=== PATIENT | female | born 1955 | race Caucasian/White ===

== ENCOUNTER 2019-03-09 11:49 | Inpatient (IN) | payer BC ==
[2019-03-09 14:27] LABS: Hematocrit 40.7 % (35-47); Hemoglobin 13.9 gm/dl (12.0-16.0); Mean Corpuscular Hemoglobin 29.7 pg (26-32); Mean Corpuscular Hgb Concent. 34.2 g/dl (32-36); Platelet Count 392 K/mm3 (150-450); Red Blood Count 4.68 M/mm3 (4.1-5.4); Red Cell Distribution Width 13.8 % (11.5-14.0); White Blood Count 9.3 K/mm3 (4.0-10.5)
[2019-03-09] MEDS ORDERED: solu-MEDROL 125 MG IV SCH (14:30)
--- NOTE | 2019-03-09 14:41 | XRAY ---
Indication: Short of breath. Asthma exacerbation. Comparison: October 20, 2018. PA/lateral chest demonstrates stable left base calcified granulomas. No focal infiltrate, consolidation, or large effusion. Heart and mediastinal structures within normal limits. Bony thorax intact again with mild degenerative changes. Impression: Stable nonacute chest with chronic features.
[2019-03-09 14:45] LABS: BAND 7 % (0.0-2.0); Basophil 1 % (0.0-1.0); Lymphocytes 26 % (24-44); Metamyelocyte 3 %; Monocyte 2 % (0.0-12.0); Neutrophils 61 % (36.0-66.0); Platelet Estimate NORMAL (NORMAL); Total Cells Counted 100
[2019-03-09 14:46] LABS: Granulocyte Absolute (ANC) 6.4 (1.4-6.9)
[2019-03-09 14:48] LABS: ALBUMIN 4.2 g/dL (3.5-5.0); ALKALINE PHOSPHATASE 110 U/L (38-126); AMYLASE 81 U/L (30-110); ANION GAP 13.9 MEQ/L (5-15); BLOOD UREA NITROGEN 18 mg/dL (7-17); CHLORIDE 107 mmol/L (98-107); Calcium 9.8 mg/dL (8.4-10.2); Carbon Dioxide 22 mmol/L (22-30); Creatinine 1 0.85 mg/dL (0.52-1.04); Glucose 88 mg/dL (74-106); Potassium 3.7 mmol/L (3.5-5.1); SGOT/AST 29 U/L (14-36); SGPT/ALT 25 U/L (0-35); SODIUM 139 mmol/L (137-145); Total Protein 7.3 g/dL (6.3-8.2)
[2019-03-09] MEDS: ROCEPHIN 1 Gm-D5w 50 ml Bag** 1 G/50 ML IVPB IV SCH (15:08)
[2019-03-09] MEDS: DUONEB 0.5-3 MG/3 ml Neb IH SCH ×2 (15:39→19:12)
[2019-03-09] MEDS ORDERED: Zofran 4 MG/2 ML VIAL IV PRN (15:40)
[2019-03-09] MEDS ORDERED: TORAdol 30 mg Injection IV ONE (16:10)
[2019-03-09] MEDS ORDERED: Sodium Chloride 0.9% 500 ML 500 ML IV ONE ×2 (16:10→18:00)
[2019-03-09] MEDS: Zithromax 500 MG/ 250 ML NaCl Premix 500 MG/250 ML IVPB IV SCH (16:25)
--- NOTE | 2019-03-09 16:36 | XRAY ---
Indication: Short of breath and cough. Left chest pain. Elevated d-dimer. Multiple contiguous axial images obtained through the chest using 20 cc Isovue-370 contrast and PE protocol. Comparison: September 22, 2018. There is good opacification of the pulmonary arteries to include the lobar and segmental branches. Again no filling defect or pulmonary embolus. Heart is not enlarged. Aorta is normal in course and caliber. Stable left hilar calcified nodes. Again no pathologic mediastinal/hilar lymphadenopathy. Examination of the lung parenchyma demonstrates stable left lower lobe calcified granulomas. Also stable right lower lobe 8 mm, subpleural right upper lobe 3 mm, and subpleural left upper lobe 3 mm noncalcified nodules probably granulomatous. No new pulmonary mass, infiltrate, or effusion. Bony thorax intact again with mild degenerative changes throughout the spine. Limited upper abdomen again demonstrates fatty liver and 12.6 cm splenomegaly. Impression: 1. Again negative for pulmonary embolus. 2. No new or acute cardiopulmonary abnormalities. 3. Stable incidental findings including fatty liver, splenomegaly, and evidence for granulomatous disease. CTDI 28.14
[2019-03-09] MEDS: Sodium Chloride 0.9% 1000 ML 1,000 ML IV SCH ×2 (16:56→18:14)
[2019-03-09 17:05] LABS: Appearance CLEAR (CLEAR); Bacteria RARE /HPF (NEGATIVE); Bilirubin NEGATIVE (NEGATIVE); Blood NEGATIVE Ery/ul (0-5); Epithelial Cells RARE /HPF (FEW); Glucose NEGATIVE (NEGATIVE); Ketones SMALL (NEGATIVE); Leukocyte Esterase NEGATIVE (NEGATIVE); Nitrite NEGATIVE (NEGATIVE); Protein,Urine Dip NEGATIVE (Negative); Specific Gravity 1.012 (1.005-1.025); Urobilinogen NEGATIVE mg/dL (0-1)
[2019-03-09] MEDS: solu-MEDROL 125 MG IV SCH (18:15)
[2019-03-09] MEDS: ENOXAPARIN SODIUM SQ SCH (18:19)
[2019-03-09] MEDS ORDERED: MESALAMINE PO SCH (22:00)
[2019-03-09] MEDS: NON-FORMULARY ITEM PO SCH (22:22)
[2019-03-09] MEDS: NORTRIPTYLINE HCL PO SCH (22:25)
[2019-03-10] MEDS: solu-MEDROL 125 MG IV SCH ×4 (00:05→17:41)
[2019-03-10] MEDS: Sodium Chloride 0.9% 1000 ML 1,000 ML IV SCH (06:49)
[2019-03-10] MEDS: DUONEB 0.5-3 MG/3 ml Neb IH SCH ×4 (07:15→19:27)
[2019-03-10] MEDS: NON-FORMULARY ITEM PO SCH ×2 (08:34→17:42)
[2019-03-10] MEDS: ENOXAPARIN SODIUM SQ SCH (10:06)
[2019-03-10] MEDS: ROCEPHIN 1 Gm-D5w 50 ml Bag** 1 G/50 ML IVPB IV SCH (10:07)
[2019-03-10] MEDS: Zithromax 500 MG/ 250 ML NaCl Premix 500 MG/250 ML IVPB IV SCH (11:51)
--- NOTE | 2019-03-10 13:36 | PCM.HP.ADD ---
Addendum to History & Physical - History & Physical Addendum Addendum to History & Physical: This certifies that the History & Physical in the electronic chart reflects the current health status of the patient. If there are changes in the H&P these changes/exceptions are listed as follows.
--- NOTE | 2019-03-10 15:23 | PCM.NOTE ---
Date and Time: 03/10/19 1518 Subjective Assessment: Pt still requiring O2. She is less short of breath but still tachypneic. No appetite, not eating well. The nebulizer treatments here are helping - were not helping at home. Cough is still persistent but nonproductive. Last night pt had L shoulder pain which resolved with toradol and has not returned. Still extremely tired, even when walking in hospital room. - Review of Systems Constitutional: No Fever Respiratory: Cough, Short Of Breath Cardiac: No Chest Pain Objective Exam General Appearance: no apparent distress, alert Neurologic Exam: oriented x 3, cooperative Skin Exam: normal color, warm, dry, No rash Respiratory Exam: diminished breath sounds, other (tachypneic), No crackles/ rales, No rhonchi, No wheezing Cardiovascular Exam: regular rate/rhythm, normal heart sounds, No murmur Extremity Exam: normal inspection, No pedal edema, No swelling Back Exam: normal inspection, No rash OBJECTIVE DATA Vital Signs: Vital Signs - 24 hr Temp Pulse Resp BP Pulse Ox 03/10/19 12:00 98.6 F 99 H 18 131/60 98 03/10/19 11:35 96 H 18 96 03/10/19 07:31 97.7 F 86 17 106/59 93 L 03/10/19 07:17 72 18 97 03/10/19 03:48 98.1 F 88 18 128/62 94 L 03/09/19 23:42 97.3 F 94 H 21 147/68 96 03/09/19 19:37 98.0 F 96 H 20 140/88 96 03/09/19 19:11 96 H 22 96 03/09/19 17:11 86 22 97 03/09/19 15:27 98.0 F 76 20 139/78 96 Oxygen-Last 24 hours O2 Percentage 2 Liters = 28% O2 Percentage 2 Liters = 28% O2 Percentage 2 Liters = 28% O2 Percentage 2 Liters = 28% Pain Assessment - Last Documented Pain Intensity 10 Pain Scale Used 0-10 Pain Scale Intake and Output: Intake & Output 03/08/19 03/09/19 03/10/19 03/11/19 11:59 11:59 11:59 11:59 Intake Total 3552 480 Output Total 3015 Balance 1177 480 Weight 115.7 kg Lab Results: Lab Results-Last 24 Hours 03/09/19 03/09/19 03/09/19 Range/Units 16:43 Unknown Unknown Magnesium 2.2 (1.6-2.3) mg/dL NT-Pro-B Natriuret Pep 122 (0-900) pg/mL Urine Color STRAW (YELLOW) Urine Appearance CLEAR (CLEAR) Urine pH 8.0 (5-6) Ur Specific [place] 1.012 (1.005-1.025) Urine Protein NEGATIVE (Negative) Urine Ketones SMALL (NEGATIVE) Urine Blood NEGATIVE (0-5) Daniel/ul Urine Nitrite NEGATIVE (NEGATIVE) Urine Bilirubin NEGATIVE (NEGATIVE) Urine Urobilinogen NEGATIVE (0-1) mg/dL Ur Leukocyte Esterase NEGATIVE (NEGATIVE) Urine WBC (Auto) 3-5 (0-5) /HPF Urine RBC (Auto) NONE (0-2) /HPF U Epithel Cells (Auto) RARE (FEW) /HPF Urine Bacteria (Auto) RARE (NEGATIVE) /HPF Urine Culture Reflexed NO (NO) Urine Glucose NEGATIVE (NEGATIVE) mg/dL Radiology Exams: Radiology Procedures Category Date Time Status CHEST 2 VIEWS (PA AND LAT) Stat Exams 03/09/19 14:10 Completed CHEST WITH CONTRAST [CT] Stat Exams 03/09/19 15:18 Completed Assessment/Plan (1) Hypoxemia Current Visit: Yes Status: Acute Assessment & Plan: Still has O2 requirement, persistent. Would like to see her back to baseline before her discharge. Code(s): R09.02 - HYPOXEMIA (2) Exacerbation of asthma Current Visit: Yes Status: Acute Qualifiers: Asthma severity: mild Asthma persistence: intermittent Qualified Code(s) : J45.21 - Mild intermittent asthma with (acute) exacerbation Assessment & Plan: Treating as for pneumonia with her clinical sx of SOB and extreme fatigue. On day #2 zithromax and rocephin. Also on solumedrol 80mg IV q6h. Code(s): J45.901 - UNSPECIFIED ASTHMA WITH (ACUTE) EXACERBATION (3) Shortness of breath Current Visit: Yes Status: Acute Assessment & Plan: persistent. She must continue treatment until she is not tachypneic at rest, as she is now. Code(s): R06.02 - SHORTNESS OF BREATH
[2019-03-10] MEDS: Mucinex 600MG ER Tabs PO SCH (21:30)
[2019-03-10] MEDS: NORTRIPTYLINE HCL PO SCH (21:30)
[2019-03-11] MEDS: solu-MEDROL 125 MG IV SCH ×4 (01:30→17:00)
[2019-03-11] MEDS: DUONEB 0.5-3 MG/3 ml Neb IH SCH ×4 (07:04→19:19)
[2019-03-11] MEDS: NON-FORMULARY ITEM PO SCH ×2 (08:19→17:00)
[2019-03-11] MEDS ORDERED: TORAdol 30 mg Injection IV ONE (08:48)
[2019-03-11] MEDS: Mucinex 600MG ER Tabs PO SCH ×2 (09:13→20:45)
[2019-03-11] MEDS: ROCEPHIN 1 Gm-D5w 50 ml Bag** 1 G/50 ML IVPB IV SCH (09:14)
[2019-03-11] MEDS: Sodium Chloride 0.9% 1000 ML 1,000 ML IV SCH (09:15)
[2019-03-11] MEDS: ENOXAPARIN SODIUM SQ SCH (09:28)
[2019-03-11] MEDS: Zithromax 500 MG/ 250 ML NaCl Premix 500 MG/250 ML IVPB IV SCH (10:50)
[2019-03-11 12:04] LABS: SGPT/ALT 36 U/L (0-35)
[2019-03-11 12:09] LABS: ALBUMIN 3.5 g/dL (3.5-5.0); ALKALINE PHOSPHATASE 97 U/L (38-126); BLOOD UREA NITROGEN 17 mg/dL (7-17); CHLORIDE 111 mmol/L (98-107); Calcium 8.7 mg/dL (8.4-10.2); Carbon Dioxide 18 mmol/L (22-30); Glucose 242 mg/dL (74-106); Potassium 3.3 mmol/L (3.5-5.1); SGOT/AST 34 U/L (14-36); SODIUM 141 mmol/L (137-145); Total Protein 6.3 g/dL (6.3-8.2)
[2019-03-11 12:20] LABS: TROPONIN < 0.012 ng/mL (0.000-0.034)
[2019-03-11 12:21] LABS: Hematocrit 38.8 % (35-47); Hemoglobin 12.5 gm/dl (12.0-16.0); Mean Cell Volume 90.2 fl (78-100); Mean Corpuscular Hemoglobin 29.1 pg (26-32); Mean Corpuscular Hgb Concent. 32.2 g/dl (32-36); Mean Platelet Volume 9.2 fl (6-9.5); Platelet Count 349 K/mm3 (150-450); Red Cell Distribution Width 14.9 % (11.5-14.0); White Blood Count 18.7 K/mm3 (4.0-10.5)
[2019-03-11 13:13] LABS: BAND 1 % (0.0-2.0); Lymphocytes 2 % (24-44); Monocyte 2 % (0.0-12.0); Neutrophils 95 % (36.0-66.0); Platelet Estimate NORMAL (NORMAL); Total Cells Counted 100; Toxic Granulation 1+
--- NOTE | 2019-03-11 13:59 | PCM.NOTE ---
Date and Time: 03/11/19 7053 Subjective Assessment: Pt had sharp pain late this morning (11:35) - substernal, radiating up to her neck and through to the back, lasting about 5 seconds, sharp. CXR was done which shows pneumonia. EKG was wnl. One troponin done which is negative. Now pt is just sore. Still having SOB. Feels "puffy" everywhere. Pt notes her nails are pitting. She does have areas of erythematous skin scattered throughout her body that are covered with a white scale at times. She does have polyarthrtitis in her elbows, shoulders, and other joints that is long standing. - Review of Systems Respiratory: Cough, Short Of Breath Cardiac: Chest Pain Objective Exam General Appearance: no apparent distress, alert Neurologic Exam: oriented x 3, cooperative Skin Exam: normal color, warm, dry, No rash Respiratory Exam: lungs clear, diminished breath sounds, other (mild tachypnea) , No crackles/rales, No rhonchi, No wheezing Cardiovascular Exam: regular rate/rhythm, normal heart sounds, No murmur Extremity Exam: normal inspection, No pedal edema, No swelling Back Exam: normal inspection, No rash OBJECTIVE DATA Vital Signs: Vital Signs - 24 hr Temp Pulse Resp BP Pulse Ox 03/11/19 11:12 91 H 18 95 03/11/19 11:00 97.6 F 95 H 16 127/59 99 03/11/19 07:06 104 H 18 97 03/11/19 07:00 98.0 F 103 H 18 179/79 94 L 03/11/19 04:00 97.8 F 97 H 18 124/64 96 03/11/19 02:25 88 20 95 03/11/19 00:00 97.6 F 91 H 20 143/59 95 03/10/19 19:28 97.7 F 100 H 20 117/56 94 L 03/10/19 16:00 98.2 F 113 H 24 144/67 96 03/10/19 15:17 100 H 18 98 Oxygen-Last 24 hours O2 Percentage 2 Liters = 28% O2 Percentage 2 Liters = 28% O2 Percentage 2 Liters = 28% O2 Percentage 2 Liters = 28% Pain Assessment - Last Documented Pain Intensity 6 Pain Scale Used 0-10 Pain Scale Intake and Output: Intake & Output 03/09/19 03/10/19 03/11/19 03/12/19 11:59 11:59 11:59 11:59 Intake Total 3558 2000 480 Output Total 4676 0164 500 Balance 1177 370 -20 Weight 115.7 kg Lab Results: Lab Results-Last 24 Hours 03/10/19 03/11/19 03/11/19 Range/Units 16:08 11:47 12:00 WBC 18.7 H (4.0-10.5) K/mm3 RBC 4.30 (4.1-5.4) M/mm3 Hgb 12.5 (12.0-16.0) gm/dl Hct 38.8 (35-47) % MCV 90.2 (78-100) fl MCH 29.1 (26-32) pg MCHC 32.2 (32-36) g/dl RDW 14.9 H (11.5-14.0) % Plt Count 349 (150-450) K/mm3 MPV 9.2 (6-9.5) fl Segmented Neutrophils 95 H (36.0-66.0) % Band Neutrophils 1 (0.0-2.0) % Lymphocytes (Manual) 2 L (24-44) % Monocytes (Manual) 2 (0.0-12.0) % Toxic Granulation 1+ Platelet Estimate NORMAL (NORMAL) RBC Morphology NORMAL Sodium 141 (137-145) mmol/L Potassium 3.3 L (3.5-5.1) mmol/L Chloride 111 H (98-107) mmol/L Carbon Dioxide 18 L (22-30) mmol/L Anion Gap 15.0 (5-15) MEQ/L BUN 17 (7-17) mg/dL Creatinine 0.80 (0.52-1.04) mg/dL Estimated GFR > 60.0 ML/MIN Glucose 242 H (74-106) mg/dL Calcium 8.7 (8.4-10.2) mg/dL Magnesium 2.0 (1.6-2.3) mg/dL Total Bilirubin 0.40 (0.2-1.3) mg/dL AST 34 (14-36) U/L ALT 36 H (0-35) U/L Alkaline Phosphatase 97 (38-126) U/L Troponin I < 0.012 < 0.012 (0.000-0.034) ng/mL Serum Total Protein 6.3 (6.3-8.2) g/dL Albumin 3.5 (3.5-5.0) g/dL Radiology Exams: Radiology Procedures Category Date Time Status CHEST 2 VIEWS (PA AND LAT) Stat Exams 03/09/19 14:10 Completed CHEST 2 VIEWS (PA AND LAT) Stat Exams 03/11/19 12:16 Taken CHEST WITH CONTRAST [CT] Stat Exams 03/09/19 15:18 Completed Assessment/Plan (1) Pneumonia Current Visit: Yes Status: Acute Qualifiers: Pneumonia type: due to unspecified organism Laterality: right Lung location: lower lobe of lung Qualified Code(s): J18.1 - Lobar pneumonia, unspecified organism Assessment & Plan: Pt is on day #3 of rocephin and zithromax. On IV solumedrol 80mg IV q6h. Code(s): J18.9 - PNEUMONIA, UNSPECIFIED ORGANISM (2) Hypoxemia Current Visit: Yes Status: Acute Assessment & Plan: still on O2 per [place] Code(s): R09.02 - HYPOXEMIA (3) Shortness of breath Current Visit: Yes Status: Acute Assessment & Plan: stopping her IVF for now, pt feeling "puffy" but does not want to try diuretic. Code(s): R06.02 - SHORTNESS OF BREATH
[2019-03-11] MEDS ORDERED: Ativan 1 MG PO PRN (19:40)
--- NOTE | 2019-03-11 20:22 | XRAY ---
Indication: Chest pain. Comparison: March 09, 2019. PA/lateral chest demonstrates new bibasilar infiltrate/atelectasis and tiny effusions. Stable left base calcified granulomas. Heart is not enlarged. Comment: Preliminary interpretation was made by [facility]. No critical discrepancy.
[2019-03-11] MEDS: NORTRIPTYLINE HCL PO SCH (20:45)
[2019-03-11] MEDS: TORAdol 30 mg Injection IV PRN (20:46)
[2019-03-12] MEDS: solu-MEDROL 125 MG IV SCH ×3 (00:05→12:08)
[2019-03-12] MEDS: DUONEB 0.5-3 MG/3 ml Neb IH SCH ×4 (06:54→19:52)
[2019-03-12] MEDS: TORAdol 30 mg Injection IV PRN ×3 (07:04→18:47)
[2019-03-12] MEDS: NON-FORMULARY ITEM PO SCH ×2 (08:02→16:49)
[2019-03-12] MEDS: Sodium Chloride 0.9% 1000 ML 1,000 ML IV SCH (08:03)
[2019-03-12] MEDS: ENOXAPARIN SODIUM SQ SCH (09:37)
[2019-03-12] MEDS: Mucinex 600MG ER Tabs PO SCH ×2 (09:37→20:56)
[2019-03-12] MEDS: ROCEPHIN 1 Gm-D5w 50 ml Bag** 1 G/50 ML IVPB IV SCH (09:38)
[2019-03-12] MEDS: Zithromax 500 MG/ 250 ML NaCl Premix 500 MG/250 ML IVPB IV SCH (09:40)
--- NOTE | 2019-03-12 13:22 | PCM.NOTE ---
Date and Time: 03/12/19 1309 Subjective Assessment: Patient is feeling better as long as she is sitting but SOB when walking around the room,feels like wheezing is almost at baseline.Cough is looser,mucus coming up some. No chest pain Overall is just not feeling well. Objective Exam Neurologic Exam: alert, oriented x 3, cooperative Skin Exam: normal color, other (facial edema/rubalcava facies) Neck Exam: normal inspection Respiratory Exam: diminished breath sounds, crackles/rales (see CXR,WBC18.7 on IV steroids,afebrile. Potassium 3.3, KDA=861), wheezing, other (moving air mid bilateral but diminished in bases with crackles) Cardiovascular Exam: regular rate/rhythm (WBC) Extremity Exam: pedal edema, swelling OBJECTIVE DATA Vital Signs: Vital Signs - 24 hr Temp Pulse Resp BP Pulse Ox 03/12/19 11:00 98.3 F 84 18 132/61 99 03/12/19 10:31 92 H 18 93 L 03/12/19 07:00 98.4 F 74 18 143/88 96 03/12/19 06:57 97 H 20 96 03/12/19 03:00 97.9 F 85 20 142/66 95 03/11/19 23:00 97.6 F 92 H 20 132/60 95 03/11/19 19:20 90 18 97 03/11/19 19:00 97.5 F 93 H 19 139/59 98 03/11/19 15:58 101 H 18 94 L 03/11/19 15:00 99.7 F 101 H 18 114/51 94 L Oxygen-Last 24 hours O2 Percentage 2 Liters = 28% Pain Assessment - Last Documented Pain Intensity 8 Pain Scale Used 0-10 Pain Scale Intake and Output: Intake & Output 03/10/19 03/11/19 03/12/19 03/13/19 11:59 11:59 11:59 11:59 Intake Total 3552 2320 2040 Output Total 2375 1950 1530 Balance 1177 370 510 Weight 115.7 kg Lab Results: Lab Results-Last 24 Hours 03/11/19 03/12/19 Range/Units 12:00 05:40 Segmented Neutrophils 95 H (36.0-66.0) % Band Neutrophils 1 (0.0-2.0) % Lymphocytes (Manual) 2 L (24-44) % Monocytes (Manual) 2 (0.0-12.0) % Toxic Granulation 1+ Platelet Estimate NORMAL (NORMAL) RBC Morphology NORMAL NT-Pro-B Natriuret Pep 1350 H (0-900) pg/mL Radiology Exams: Radiology Procedures Category Date Time Status CHEST 2 VIEWS (PA AND LAT) Stat Exams 03/11/19 12:16 Completed Assessment/Plan (1) Hyperglycemia, drug-induced Current Visit: Yes Status: Acute Assessment & Plan: on IV steroids,test Hgb A1C. Code(s): R73.9 - HYPERGLYCEMIA, UNSPECIFIED; T50.905A - ADVERSE EFFECT OF UNSP DRUG/MEDS/BIOL SUBST, INIT (2) Exacerbation of asthma Current Visit: Yes Status: Acute Qualifiers: Asthma severity: mild Asthma persistence: intermittent Qualified Code(s) : J45.21 - Mild intermittent asthma with (acute) exacerbation Assessment & Plan: improved better aeration,reduce steroids Code(s): J45.901 - UNSPECIFIED ASTHMA WITH (ACUTE) EXACERBATION (3) Hypokalemia Current Visit: Yes Status: Acute Assessment & Plan: oral potassium, see orders. Code(s): E87.6 - HYPOKALEMIA (4) Pneumonia Current Visit: Yes Status: Acute Qualifiers: Pneumonia type: due to unspecified organism Laterality: bilateral Lung location: lower lobe of lung Qualified Code(s): J18.1 - Lobar pneumonia, unspecified organism Assessment & Plan: afebrile but WBC up-reducing steroids ,retest CBC tomorrow. May start Levaquin . Code(s): J18.9 - PNEUMONIA, UNSPECIFIED ORGANISM
[2019-03-12] MEDS: Klor Con 10 MEQ PO SCH ×2 (14:39→20:56)
[2019-03-12] MEDS: NORTRIPTYLINE HCL PO SCH (20:56)
[2019-03-13 05:43] LABS: ALBUMIN 3.1 g/dL (3.5-5.0); ALKALINE PHOSPHATASE 77 U/L (38-126); ANION GAP 8.8 MEQ/L (5-15); BLOOD UREA NITROGEN 23 mg/dL (7-17); CHLORIDE 111 mmol/L (98-107); Calcium 8.5 mg/dL (8.4-10.2); Carbon Dioxide 24 mmol/L (22-30); Creatinine 1 0.83 mg/dL (0.52-1.04); Glucose 121 mg/dL (74-106); Potassium 4.4 mmol/L (3.5-5.1); SGOT/AST 55 U/L (14-36); SGPT/ALT 97 U/L (0-35); SODIUM 140 mmol/L (137-145); Total Protein 5.7 g/dL (6.3-8.2)
[2019-03-13] MEDS: DUONEB 0.5-3 MG/3 ml Neb IH SCH ×4 (07:20→19:12)
[2019-03-13] MEDS: NON-FORMULARY ITEM PO SCH ×2 (07:41→16:24)
[2019-03-13] MEDS ORDERED: DELTASONE 20 MG PO SCH (10:00)
[2019-03-13] MEDS: ENOXAPARIN SODIUM SQ SCH (10:13)
[2019-03-13] MEDS: Mucinex 600MG ER Tabs PO SCH ×2 (10:13→21:01)
[2019-03-13] MEDS: ROCEPHIN 1 Gm-D5w 50 ml Bag** 1 G/50 ML IVPB IV SCH (10:14)
[2019-03-13] MEDS: Zithromax 500 MG/ 250 ML NaCl Premix 500 MG/250 ML IVPB IV SCH (10:14)
[2019-03-13] MEDS ORDERED: Lasix 20 MG/2 ML IV SCH (11:30)
[2019-03-13] MEDS ORDERED: Klor Con 10 MEQ PO ONE (11:30)
--- NOTE | 2019-03-13 14:06 | PCM.NOTE ---
Date and Time: 03/13/19 1403 Subjective Assessment: Patient is not feeling well today,"legs feel like tree stumps" and feeling tired and no improvement with SOB on exertion. OBJECTIVE DATA Vital Signs: Vital Signs - 24 hr Temp Pulse Resp BP Pulse Ox 03/13/19 11:00 97.6 F 78 18 146/65 99 03/13/19 10:44 70 20 97 03/13/19 07:30 96 03/13/19 07:25 82 20 96 03/13/19 07:00 98.1 F 73 18 143/68 98 03/13/19 03:00 97.5 F 79 18 141/73 96 03/12/19 23:00 98.1 F 87 16 139/65 94 L 03/12/19 19:55 81 18 93 L 03/12/19 19:00 98.8 F 85 18 143/66 93 L 03/12/19 15:00 98.1 F 85 18 154/70 98 03/12/19 14:41 84 20 95 Oxygen-Last 24 hours O2 Percentage 2 Liters = 28% O2 Percentage 2 Liters = 28% O2 Percentage 2 Liters = 28% O2 Percentage 2 Liters = 28% O2 Percentage 2 Liters = 28% Pain Assessment - Last Documented Pain Intensity 0 Pain Scale Used 0-10 Pain Scale Intake and Output: Intake & Output 03/11/19 03/12/19 03/13/19 03/14/19 11:59 11:59 11:59 11:59 Intake Total 2320 2040 1460 380 Output Total 1950 3981 205 4071 Balance 370 510 560 -1220 Weight 115.7 kg Lab Results: Lab Results-Last 24 Hours 03/13/19 03/13/19 Range/Units 05:22 05:22 Sodium 140 (137-145) mmol/L Potassium 4.4 D (3.5-5.1) mmol/L Chloride 111 H (98-107) mmol/L Carbon Dioxide 24 (22-30) mmol/L Anion Gap 8.8 (5-15) MEQ/L BUN 23 H (7-17) mg/dL Creatinine 0.83 (0.52-1.04) mg/dL Estimated GFR > 60.0 ML/MIN Glucose 121 H (74-106) mg/dL Hemoglobin A1c 5.23 (4.5-6.0) % Calcium 8.5 (8.4-10.2) mg/dL Total Bilirubin 0.30 (0.2-1.3) mg/dL AST 55 H (14-36) U/L ALT 97 H (0-35) U/L Alkaline Phosphatase 77 (38-126) U/L Serum Total Protein 5.7 L (6.3-8.2) g/dL Albumin 3.1 L (3.5-5.0) g/dL Radiology Exams: Radiology Procedures Category Date Time Status ECHO W/2D AND DOPPLER [US] Routine Exams 03/13/19 14:10 Ordered Multi-Disciplinary Progress Notes: Multi-Disciplinary Progress Notes 03/13/19 13:58 Respiratory Note by Olga Reyes PT O2 SAT 97% ON 2LPM NC AT REST. SAT 96% ON ROOM AIR AT REST. O2 SAT 92% ON ROOM AIR WITH EXERCISE. O2 SAT 97% ON 2LPM NC AFTER EXERCISE. Initialized on 03/13/19 13:58 - END OF NOTE Assessment/Plan (1) Hyperglycemia, drug-induced Current Visit: Yes Status: Acute Code(s): R73.9 - HYPERGLYCEMIA, UNSPECIFIED ; T50.905A - ADVERSE EFFECT OF UNSP DRUG/MEDS/BIOL SUBST, INIT (2) Exacerbation of asthma Current Visit: Yes Status: Acute Qualifiers: Asthma severity: mild Asthma persistence: intermittent Qualified Code(s) : J45.21 - Mild intermittent asthma with (acute) exacerbation Code(s): J45.901 - UNSPECIFIED ASTHMA WITH (ACUTE) EXACERBATION (3) Hypokalemia Current Visit: Yes Status: Acute Code(s): E87.6 - HYPOKALEMIA (4) Pneumonia Current Visit: Yes Status: Acute Qualifiers: Pneumonia type: due to unspecified organism Laterality: bilateral Lung location: lower lobe of lung Qualified Code(s): J18.1 - Lobar pneumonia, unspecified organism Code(s): J18.9 - PNEUMONIA, UNSPECIFIED ORGANISM (5) CHF (congestive heart failure) Current Visit: Yes Status: Acute Code(s): I50.9 - HEART FAILURE, UNSPECIFIED
[2019-03-13 15:47] LABS: Hematocrit 38.4 % (35-47); Hemoglobin 12.7 gm/dl (12.0-16.0); Mean Cell Volume 88.7 fl (78-100); Mean Corpuscular Hemoglobin 29.3 pg (26-32); Mean Corpuscular Hgb Concent. 33.1 g/dl (32-36); Mean Platelet Volume 9.4 fl (6-9.5); Platelet Count 345 K/mm3 (150-450); Red Blood Count 4.33 M/mm3 (4.1-5.4); Red Cell Distribution Width 14.8 % (11.5-14.0); White Blood Count 14.5 K/mm3 (4.0-10.5)
[2019-03-13] MEDS: Klor Con 10 MEQ PO SCH ×2 (16:10→21:01)
[2019-03-13 16:54] LABS: Lymphocytes 14 % (24-44); Monocyte 2 % (0.0-12.0); Neutrophils 84 % (36.0-66.0); Total Cells Counted 100
[2019-03-13 16:55] LABS: Platelet Estimate NORMAL (NORMAL)
[2019-03-13] MEDS: NORTRIPTYLINE HCL PO SCH (21:01)
[2019-03-13] MEDS: Sodium Chloride 0.9% 10 ML FLUSH Syringe IV SCH (21:25)
[2019-03-14] MEDS: Sodium Chloride 0.9% 10 ML FLUSH Syringe IV SCH (06:03)
[2019-03-14 07:05] VITALS: BP 131/63
[2019-03-14] MEDS: DUONEB 0.5-3 MG/3 ml Neb IH SCH (07:06)
[2019-03-14 07:11] VITALS: PULSE 78; O2SAT 95
--- NOTE | 2019-03-14 08:10 | ECHO ---
Transthoracic echocardiographic examination and color Doppler was done on 03/13/2019. INDICATION: Shortness of breath. IMPRESSION: 1) NO DEFINITE REGIONAL WALL MOTION ABNORMALITY. ESTIMATED GLOBAL LEFT VENTRICULAR EJECTION FRACTION OF 60%. 2) TRACE MITRAL REGURGITATION. 3) TRACE TRICUSPID REGURGITATION. 4) LEFT VENTRICULAR HYPERTROPHY. The left ventricle is visualized and demonstrated adequate motion of all the segments. Estimated global left ventricular ejection fraction of 60%. The left ventricular thickness is normal. The mitral valve is seen and this opens adequately. There is trace mitral regurgitation. Left atrium is normal. The aortic valve opens adequately. There is no significant gradient across the aortic valve. The right side chambers are normal. There is trace tricuspid regurgitation. The right ventricular systolic pressure of 31 mm of [place].
[2019-03-14] MEDS: NON-FORMULARY ITEM PO SCH (08:21)
[2019-03-14] MEDS ORDERED: Levofloxacin 500MG/100ML D5W 500 MG/100 ML BAG IV SCH (10:00)
== END 2019-03-14 10:00 | disposition home or self-care (01) | DRG 194 ==
LOC: MED SURG 11:49 → OBSVTOIN 03-11 11:49
PROVIDERS: ADMIT Family Medicine; ATTEND Family Medicine
DX: J18.9 Pneumonia, unspecified organism (principal); J45.901 Unspecified asthma with (acute) exacerbation; I50.9 Heart failure, unspecified; R09.02 Hypoxemia; E87.6 Hypokalemia; R10.12 Left upper quadrant pain; R06.82 Tachypnea, not elsewhere classified; M25.512 Pain in left shoulder; M13.0 Polyarthritis, unspecified; R07.9 Chest pain, unspecified; R06.02 Shortness of breath; R73.9 Hyperglycemia, unspecified; T50.905A Adverse effect of unspecified drugs, medicaments and biological substances, initial encounter
CPT/HCPCS: 36415; 71046; 71260; 80053; 81001; 82150; 83036; 83690; 83735; 83880; 84484; 85025; 85379; 93005; 93306; 94150; 94640; 94760; G0378; J0456; J0696; J1650; J1885; J1940; J2405; J2930; A9270-GY

== ENCOUNTER 2021-07-20 22:24 | Emergency (ER) | payer BC | END 2021-07-20 23:00 | disposition left against medical advice (07) | LOC: ED 22:24 | DX: Z53.9 Procedure and treatment not carried out, unspecified reason (principal) ==

== ENCOUNTER 2022-11-19 21:10 | Observation (INO) | payer MEDICARE ==
[2022-11-19] MEDS ORDERED: Sodium Chloride 0.9% 1000 ML 1,000 ML IV STA (21:33)
[2022-11-19] MEDS ORDERED: PROTONIX 40 MG IV IV ONE ×2 (21:33→21:39)
[2022-11-19] MEDS ORDERED: Sodium Chloride 0.9% 1000 ML 1,000 ML ONE (21:39)
[2022-11-19 21:48] LABS: Absolute Neutrophil Ct (ANC) 7.96 x10^3/uL (1.4-6.9); Basophil (Absolute #) 0.11 x10^3/uL (0-0.4); Eosinophil % 0.4 % (0.00-5.0); Eosinophil (Absolute #) 0.04 x10^3/uL (0-0.5); Hematocrit 44.9 % (35-47); Hemoglobin 14.9 g/dL (12.0-16.0); IMMATURE GRAN # 0.05 x10^3u/L (0.00-0.03); IMMATURE GRAN % 0.5 % (0.00-0.4); Lymphocyte (Absolute #) 1.85 x10^3/uL (1.0-4.6); Lymphocytes % 17.2 % (24.0-44.0); Mean Cell Volume 87.4 fL (78-100); Mean Corpuscular Hgb Concent. 33.2 g/dL (32-36); Mean Platelet Volume 8.9 fL (7.5-11.0); Monocyte (Absolute #) 0.72 x10^3/uL (0.0-1.3); Monocytes % 6.7 % (0.0-12.0); Neutrophil % 74.2 % (36.0-66.0); Platelet Count 405 x10^3/uL (150-450); Red Blood Count 5.14 x10^6/uL (4.1-5.4); White Blood Count 10.7 x10^3/uL (4.0-10.5)
[2022-11-19 22:00] LABS: ALBUMIN 4.2 g/dL (3.5-5.0); ALKALINE PHOSPHATASE 122 U/L (38-126); ANION GAP 13.6 MEQ/L (5-15); BLOOD UREA NITROGEN 14 mg/dL (7-17); CHLORIDE 104 mmol/L (98-107); Calcium 9.2 mg/dL (8.4-10.2); Carbon Dioxide 23 mmol/L (22-30); Creatinine 1 0.86 mg/dL (0.52-1.04); EST GLOMERULAR FILTRATION RATE > 60.0 ML/MIN; Glucose 103 mg/dL (74-106); LIPASE 42 U/L (23-300); Potassium 3.8 mmol/L (3.5-5.1); SGOT/AST 33 U/L (14-36); SGPT/ALT 39 U/L (0-35); SODIUM 137 mmol/L (137-145); Total Protein 7.1 g/dL (6.3-8.2)
--- NOTE | 2022-11-19 22:40 | XRAY ---
Indication: Abdominal pain 4 days. Hematuria. History renal stones. Multiple contiguous axial images obtained through the abdomen and pelvis without contrast. Comparison: November 11, 2021 Lung bases demonstrates stable 1 cm right lower lobe noncalcified nodule and 2 chunky left lower lobe calcified nodules. No infiltrate or effusion. Heart not enlarged. Noncontrasted stomach and bowel loops appear nonobstructed again with sigmoid diverticulosis. Worsening moderate diffuse scattered colonic fecal debris throughout to the level of the mid sigmoid. Mid sigmoid colon now demonstrates 6 cm segment of bowel wall thickening with mild proximal stranding and tiny free fluid favoring colitis/diverticulitis. Sigmoid colon also demonstrates abnormal intraluminal narrowing for which colonic mass not completely excluded. Again cholecystectomy. No free air. Remaining liver, pancreas, spleen, adrenal glands, kidneys, ureters, and bladder are unremarkable for noncontrast exam. Stable minimal aortoiliac calcifications without AAA. Osseous structures intact again with mild/moderate degenerative changes throughout the spine and mild levoscoliosis. Impression: 1. Worsening moderate diffuse fecal stasis to the level of the mid sigmoid colon. Mid sigmoid demonstrates new short segment of abnormal bowel wall thickening with mild stranding and tiny free fluid favoring colitis/diverticulitis. Underlying mass colonic mass not completely excluded given intraluminal narrowing. 2. Stable bibasilar calcified and noncalcified pulmonary nodules. 3. Chronic findings including arteriosclerotic disease and chronic bony findings.
--- NOTE | 2022-11-19 22:43 | ERPHSYRPT ---
- History of Present Illness Historian: patient Exam Limitations: clinical condition Patient Subjective Stated Complaint: pt states she has been having abd pain since tuesday and has increased in last 48 hours. states she has had constipation and feels like she needs to have a bm but cnt. describes pain as cramping and coming in waves. states worse on lt side of abd Triage Nursing Assessment: pt alert and oriented, answers questions approp. pt ambulates into room with slow steady gait noted. pt tachypneic. lungs cta. skin warm and dry. abd soft, tener to lt side with palpation. Physician History: Patient presents to the ER with severe abdominal pain for the past 12 hours. Patient reports she has not had a bowel movement for the past 2 days and has not passed any gas since earlier this morning. She has a history of multiple abdominal surgeries including cholecystectomy, section and hysterectomy. She denies any history of bowel obstruction in the past. She reports nausea, but no vomiting. The pain has been so bad that she has not wanted to eat. She describes the pain as a sharp stabbing pain in the left lower quadrant that wraps around to her suprapubic region. She denies any dysuria, urgency, frequency but did states she noticed hematuria. She denies any fevers but has had chills, denies chest pain, palpitations, shortness of breath or swelling. Timing/Duration: today Activities at Onset: rest Quality: sharpness, stabbing Abdominal Pain Onset Location: LLQ, suprapubic Severity of Pain-Max: severe Severity of Pain-Current: severe Modifying Factors: Improves With: nothing. Worsens With: breathing, coughing, movement, palpation Associated Symptoms: loss of appetite, nausea, No chest pain, No diaphoresis, No fever/chills, No neck pain, No rash, No shortness of breath, No syncope, No vomiting Previous symptoms: no prior history Allergies/Adverse Reactions: amoxicillin Adverse Reaction (Verified 11/19/22 21:21) cefdinir Adverse Reaction (Verified 11/19/22 21:21) codeine Adverse Reaction (Verified 11/19/22 21:21) Opioids - Morphine Analogues Adverse Reaction (Verified 11/19/22 21:21) pill form makes her vomit Home Medications: Mesalamine 1.2 mg PO BID 03/09/19 [History] Nortriptyline HCl [Pamelor] 100 mg PO HS 03/09/19 [History] Hx Tetanus, Diphtheria Vaccination/Date Given: Yes Hx Influenza Vaccination/Date Given: No Hx Pneumococcal Vaccination/Date Given: Yes Immunizations Up to Date: Yes Travel Risk - International Travel Have you traveled outside of the country in past 3 weeks: No - Coronavirus Screening Are you exhibiting any of the following symptoms?: No Close contact with a COVID-19 positive Pt in past 14-21 Days: No - Vaccine Status Have you recieved a Covid-19 vaccination: Yes Director Smb Sales: Unknown - Vaccination Dates Dates if Unknown: unknown - Review of Systems Constitutional: Chills, No Fever Eyes: No Symptoms Ears, Nose, & Throat: No Symptoms Respiratory: No Symptoms Cardiac: No Symptoms Abdominal/Gastrointestinal: Abdominal Pain, Nausea, Constipation, Appetite Changes, No Vomiting, No Diarrhea, No Hematemesis, No Hematochezia, No Melena Genitourinary Symptoms: Hematuria, Flank Pain, No Dysuria, No Frequency, No Urgency Skin: No Symptoms Neurological: No Symptoms Psychological: No Symptoms - Past Medical History Pertinent Past Medical History: Yes Neurological History: Migraines ENT History: No Pertinent History Cardiac History: No Pertinent History Respiratory History: Bronchitis, COPD Endocrine Medical History: Hypothyroidism Musculoskeletal History: No Pertinent History GI Medical History: Polyps, Irritable Bowel, Crohns Disease, Other Psycho-Social History: No Pertinent History Female Reproductive Disorders: Fibroids, Menstrual Problems, Abnormal Uterine Bleeding, Endometriosis Other Medical History: HX OF CHRONIC ASTHMATIC BRONCHITIS. - Past Surgical History Past Surgical History: Yes Neuro Surgical History: No Pertinent History Cardiac: No Pertinent History Respiratory: No Pertinent History Gastrointestinal: Cholecystectomy Genitourinary: No Pertinent History Musculoskeletal: Joint Replacement Female Surgical History: Hysterectomy, Section Other Surgical History: knee replace x 2, liver bx - Social History Smoking Status: Never smoker Exposure to second hand smoke: No Drug Use: none Patient Lives Alone: No - Nursing Vital Signs Nursing Vital Signs: Initial Vital Signs Temperature 99.8 F 11/19/22 21:21 Pulse Rate 87 11/19/22 21:21 Respiratory Rate 28 H 11/19/22 21:21 Blood Pressure 174/82 11/19/22 21:21 O2 Sat by Pulse Oximetry 99 11/19/22 21:21 Pain Scale Pain Intensity 4 - Physical Exam General Appearance: severe distress, alert Eye Exam: eyes nml inspection Ears, Nose, Throat Exam: normal ENT inspection Neck Exam: normal inspection Respiratory Exam: normal breath sounds, lungs clear Cardiovascular Exam: normal heart sounds, tachycardia Gastrointestinal/Abdomen Exam: soft, tenderness, guarding, No distention, No mass, No rebound Back Exam: normal inspection Extremity Exam: normal inspection Neurologic Exam: alert, oriented x 3, cooperative Skin Exam: normal color, warm, dry, No rash SpO2 Interpretation: normal SpO2: 97 O2 Delivery: Room Air - Course Nursing assessment & vital signs reviewed: Yes EKG Interpreted by Me: RATE (95), Sinus Rhythm, NORMAL AXIS, NORMAL INTERVALS, NORMAL QRS, NORMAL ST-T - CT Exams Abdomen/Pelvis CT Interpretation: Tele-radiologist Report, diverticulitis (fecal stasis w/ possible colon mass ) Ordered Tests: Active Orders 24 hr Category Date Time Status EKG-ER Only STAT Care 11/19/22 21:33 Active IV Insertion STAT Care 11/19/22 21:33 Active ABDOMEN AND PELVIS W/0 CONTRAS [CT] Stat Exams 11/19/22 21:35 Completed CBC W DIFF Stat Lab 11/19/22 21:41 Completed CMP Stat Lab 11/19/22 21:41 Completed FECAL OCCULT BLOOD - SCREENING Stat Lab 11/19/22 21:33 Ordered LIPASE Stat Lab 11/19/22 21:41 Completed Lactic Acid Stat Lab 11/19/22 21:45 Completed TROPONIN Q4H Lab 11/19/22 21:41 Completed TROPONIN Q4H Lab 11/20/22 01:45 Ordered TROPONIN Q4H Lab 11/20/22 05:45 Ordered UA W/RFX UR CULTURE Stat Lab 11/19/22 21:41 Ordered Transfer Order Routine Transfer 11/20/22 Ordered Medication Summary Generic Name Dose Route Start Last Admin Trade Name Freq PRN Reason Stop Dose Admin Levofloxacin/Dextrose 500 mg in 100 mls @ 100 mls/hr 11/20/22 10:00 11/20/22 00:14 Levofloxacin 500mg/100ml D5w IV 12/20/22 09:59 Infused Q24H10 TRUDY Infusion Polyethylene Glycol 17 gm 11/20/22 10:00 11/19/22 23:13 Polyethylene Glycol 3350 17 Gm Packet PO 12/20/22 09:59 17 gm DAILY TRUDY Administration Discontinued Medications Generic Name Dose Route Start Last Admin Trade Name Freq PRN Reason Stop Dose Admin Droperidol 1.25 mg 11/19/22 21:33 11/19/22 21:41 Droperidol 5 Mg/2 Ml Vial IV 11/19/22 21:34 1.25 mg STAT ONE Administration Droperidol Confirm 11/19/22 21:39 Droperidol 5 Mg/2 Ml Vial Administered 11/19/22 21:40 Dose 5 mg .ROUTE .STK-MED ONE Sodium Chloride 1,000 mls @ 999 mls/hr 11/19/22 21:33 11/19/22 22:42 Sodium Chloride 0.9% 1000 Ml IV 11/19/22 22:33 Infused .Q1H1M STA Infusion Sodium Chloride Confirm 11/19/22 21:39 Sodium Chloride 0.9% 1000 Ml Administered 11/19/22 21:40 Dose 1,000 mls @ ud .ROUTE .STK-MED ONE Metronidazole 500 mg in 100 mls @ 200 mls/hr 11/19/22 22:59 11/19/22 23:44 Flagyl 500 Mg Ivpb IV 11/19/22 23:28 Infused STAT STA Infusion Metronidazole Confirm 11/19/22 23:12 Flagyl 500 Mg Ivpb Administered 11/19/22 23:13 Dose 500 mg in 100 mls @ ud IV .STK-MED ONE Pantoprazole Sodium 40 mg 11/19/22 21:33 11/19/22 21:41 Pantoprazole 40 Mg Vial IV 11/19/22 21:34 40 mg STAT ONE Administration Pantoprazole Sodium Confirm 11/19/22 21:39 Pantoprazole 40 Mg Vial Administered 11/19/22 21:40 Dose 40 mg IV .STK-MED ONE Lab/Rad Data: Laboratory Result Diagrams 11/19/22 21:41 11/19/22 21:41 Laboratory Results 11/19/22 11/19/22 11/19/22 Range/Units 21:45 21:41 21:41 WBC (4.0-10.5) x10^3/uL RBC (4.1-5.4) x10^6/uL Hgb (12.0-16.0) g/dL Hct (35-47) % MCV (78-100) fL MCH (26-32) pg MCHC (32-36) g/dL RDW (11.5-14.0) % Plt Count (150-450) x10^3/uL MPV (7.5-11.0) fL Gran % (36.0-66.0) % Immature Gran % (Auto) (0.00-0.4) % Nucleat RBC Rel Count (0.00-0.1) % Eos # (Auto) (0-0.5) x10^3/uL Immature Gran # (Auto) (0.00-0.03) x10^3u/L Absolute Lymphs (auto) (1.0-4.6) x10^3/uL Absolute Monos (auto) (0.0-1.3) x10^3/uL Absolute Nucleated RBC (0.00-0.01) x10^3u/L Lymphocytes % (24.0-44.0) % Monocytes % (0.0-12.0) % Eosinophils % (0.00-5.0) % Basophils % (0.0-0.4) % Absolute Granulocytes (1.4-6.9) x10^3/uL Basophils # (0-0.4) x10^3/uL Sodium 137 (137-145) mmol/L Potassium 3.8 (3.5-5.1) mmol/L Chloride 104 (98-107) mmol/L Carbon Dioxide 23 (22-30) mmol/L Anion Gap 13.6 (5-15) MEQ/L BUN 14 (7-17) mg/dL Creatinine 0.86 (0.52-1.04) mg/dL Estimated GFR > 60.0 ML/MIN Glucose 103 (74-106) mg/dL Lactic Acid 1.4 (0.4-2.0) Calcium 9.2 (8.4-10.2) mg/dL Total Bilirubin 0.90 (0.2-1.3) mg/dL AST 33 (14-36) U/L ALT 39 H (0-35) U/L Alkaline Phosphatase 122 (38-126) U/L Troponin I < 0.012 (0.000-0.034) ng/mL Serum Total Protein 7.1 (6.3-8.2) g/dL Albumin 4.2 (3.5-5.0) g/dL Lipase 42 (23-300) U/L 11/19/22 Range/Units 21:41 WBC 10.7 H (4.0-10.5) x10^3/uL RBC 5.14 (4.1-5.4) x10^6/uL Hgb 14.9 (12.0-16.0) g/dL Hct 44.9 (35-47) % MCV 87.4 (78-100) fL MCH 29.0 (26-32) pg MCHC 33.2 (32-36) g/dL RDW 13.0 (11.5-14.0) % Plt Count 405 (150-450) x10^3/uL MPV 8.9 (7.5-11.0) fL Gran % 74.2 H (36.0-66.0) % Immature Gran % (Auto) 0.5 H (0.00-0.4) % Nucleat RBC Rel Count 0.0 (0.00-0.1) % Eos # (Auto) 0.04 (0-0.5) x10^3/uL Immature Gran # (Auto) 0.05 H (0.00-0.03) x10^3u/L Absolute Lymphs (auto) 1.85 (1.0-4.6) x10^3/uL Absolute Monos (auto) 0.72 (0.0-1.3) x10^3/uL Absolute Nucleated RBC 0.00 (0.00-0.01) x10^3u/L Lymphocytes % 17.2 L (24.0-44.0) % Monocytes % 6.7 (0.0-12.0) % Eosinophils % 0.4 (0.00-5.0) % Basophils % 1.0 (0.0-0.4) % Absolute Granulocytes 7.96 H (1.4-6.9) x10^3/uL Basophils # 0.11 (0-0.4) x10^3/uL Sodium (137-145) mmol/L Potassium (3.5-5.1) mmol/L Chloride (98-107) mmol/L Carbon Dioxide (22-30) mmol/L Anion Gap (5-15) MEQ/L BUN (7-17) mg/dL Creatinine (0.52-1.04) mg/dL Estimated GFR ML/MIN Glucose (74-106) mg/dL Lactic Acid (0.4-2.0) Calcium (8.4-10.2) mg/dL Total Bilirubin (0.2-1.3) mg/dL AST (14-36) U/L ALT (0-35) U/L Alkaline Phosphatase (38-126) U/L Troponin I (0.000-0.034) ng/mL Serum Total Protein (6.3-8.2) g/dL Albumin (3.5-5.0) g/dL Lipase (23-300) U/L - Progress Progress: improved Progress Note: Patient's nausea and pain controlled w/ dose of Droperidol. Patient didn't meet sepsis criteria after evaluation. CT showed diverticulitis w/ possible colonic mass. Started Cipro/Flagyl to cover the diverticulitis. I discussed inpatient vs outpatient tx w/ the patient and patient chose to be admitted overnight for further evaluation. I discussed case w/ tele-hospitalist who agreed to accept admission w/ surgery to be consulted for evaluation of the possible colon mass. I discussed this w/ the patient and she is agreeable to the stated plan. 11/20/22 00:37 Discussed with : Other (Telehospitalist) Will see patient in: hospital (observation) Counseled pt/family regarding: lab results, diagnosis, rad results Medical Desision Making - Discussion of managment Care discussed with:: hospitalist Reviewed:: Test results Agreed on:: Treatment plan, need for follow-up, place in obs Will see patient: in hospital - Diagnostic Testing Diagnostic test were ordered, analyzed, and reviewed by me: Yes Radiological Interpretation: Teleradiologist Report - Risk of complications The pt has a high risk of morbidity or mortality based on: Decision regarding hospitilization or escalation of hosp level of care - Departure Departure Disposition: Observation Clinical Impression: Diverticulitis large intestine, Constipation Condition: Stable Critical Care Time: No Referrals: GIL DALE [Primary Care Provider] - Follow up/PCP as directed Instructions: Diverticulitis
[2022-11-19] MEDS ORDERED: FLAGYL 500 MG IVPB 500 MG/100 ML BAG IV STA (22:59)
[2022-11-19] MEDS ORDERED: FLAGYL 500 MG IVPB 500 MG/100 ML BAG IV ONE (23:12)
[2022-11-19] MEDS: Miralax Powder 17GM PACKET PO SCH (23:13)
[2022-11-20 00:24] LABS: INFLUENZA A NEGATIVE (NEGATIVE); INFLUENZA B NEGATIVE (NEGATIVE); RESPIRATORY SYNCTIAL VIRUS NEGATIVE (Negative); SARS-CoV-2 Xpert Express NEGATIVE (NEGATIVE)
[2022-11-20] MEDS ORDERED: Zofran 4 MG/2 ML VIAL IV PRN ×2 (01:36→03:05)
[2022-11-20] MEDS ORDERED: Sodium Chloride 0.9% 1000 ML 1,000 ML IV SCH (01:36)
[2022-11-20] MEDS ORDERED: TORAdol 30 mg Injection IV PRN (03:06)
--- NOTE | 2022-11-20 03:10 | PCM.HP ---
History of Present Illness - Chief Complaint Chief Complaint: Diverticulitis Date: 11/20/22 History of Present Illness: Ms. Rich is a 67 year-old female with hypothyroidism, COPD and liver disease secondary to alpha-1 antitrypsin deficiency, IBS, and Crohn's disease who presents with abdominal pain. She admits an onset of abdominal pain with decreased bowel movement since Tuesday, and due to worsening pain, she presents to [place] for further medical attention. Upon arrival, her laboratory data was fairly unremarkable, but her CT A/P revealed possible diverticulitis, sigmoid colon narrowing/increased wall thickening c/b large stool burden. On my examination, she appears comfortably dentying any current fevers, chills, nausea, vomiting, diarrhea, syncope, presyncope, visual changes, orthopnea, PND, odynophagia, dysphagia, chest pain, shortness of breath, dysuria, hematuria, melena, hematochezia, or neurological changes. All other systems were reviewed and were negative. - Review of Systems Constitutional: Other (As per HPI) Medications & Allergies Home Medications: Home Medication List Mesalamine 1.2 mg PO DAILY 03/09/19 [History Confirmed 11/20/22] Nortriptyline HCl [Pamelor] 100 mg PO HS 03/09/19 [History Confirmed 11/20/22] Fluticasone/Umeclidin/Vilanter [Trelegy Ellipta 200-62.5-25] 1 each IH DAILY 11/20/22 [History Confirmed 11/20/22] Levothyroxine Sodium 50 Mcg [Synthroid 50 Mcg] 50 mcg PO DAILY 11/20/22 [History Confirmed 11/20/22] PANTOPRAZOLE 40 mg Tablet [Protonix 40MG Tablet] 40 mg PO QAM 11/20/22 [History Confirmed 11/20/22] lisinopriL [Zestril] 2.5 mg PO DAILY 11/20/22 [History Confirmed 11/20/22] Allergies/Adverse Reactions: Allergies Allergy/AdvReac Type Severity Reaction Status Date / Time amoxicillin AdvReac Verified 11/19/22 21:21 cefdinir AdvReac Verified 11/19/22 21:21 codeine AdvReac Verified 11/19/22 21:21 Opioids - Morphine Analogues AdvReac Verified 11/19/22 21:21 - Past Medical History Past Medical History: Yes Neurological History: Migraines ENT History: No Pertinent History Cardiac History: No Pertinent History Respiratory History: Bronchitis, COPD Endocrine Medical History: Hypothyroidism Musculoskelatal History: No Pertinent History GI Medical History: Polyps, Irritable Bowel, Crohns Disease, Other Pyscho-Social History: No Pertinent History Reproductive Disorders: Fibroids, Menstrual Problems, Abnormal Uterine Bleeding, Endometriosis Comment: HX OF CHRONIC ASTHMATIC BRONCHITIS. LUNG FIBROSIS - Female History Are you now?: No - Past Surgical History Past Surgical History: Yes Neuro Surgical History: No Pertinent History Cardiac History: No Pertinent History Respiratory Surgery: No Pertinent History GI Surgical History: Cholecystectomy Genitourinary Surgical Hx: No Pertinent History Musculskeletal Surgical Hx: Joint Replacement Female Surgical History: Hysterectomy, Section Other Surgical History: knee replace x 2, liver bx - Social History Smoking Status: Never smoker Exposure to second hand smoke: No Alcohol: None Drug Use: none - Physical Exam Vital Signs: Vital Signs - 24 hr Temp Pulse Resp BP Pulse Ox 11/20/22 01:48 97.8 F 98 H 19 161/71 94 L 11/20/22 00:44 97 11/20/22 00:00 98 H 156/80 97 11/19/22 23:00 98 H 162/49 97 11/19/22 22:38 94 H 170/73 97 11/19/22 21:21 99.8 F 87 28 H 174/82 99 General Appearance: no apparent distress Neurologic Exam: alert, oriented x 3 Eye Exam: PERRL/EOMI, eyes nml inspection Ears, Nose, Throat Exam: normal ENT inspection, TMs normal Neck Exam: normal inspection, non-tender, supple Respiratory Exam: normal breath sounds, lungs clear Cardiovascular Exam: regular rate/rhythm, normal heart sounds, normal peripheral pulses Gastrointestinal/Abdomen Exam: tenderness Pelvic Exam: not done Rectal Exam: deferred Back Exam: normal inspection Extremity Exam: normal inspection Skin Exam: normal color Results - Labs Lab/Micro Results: Lab Results-Last 24 Hours 11/19/22 11/19/22 11/19/22 Range/Units 21:41 21:41 21:41 WBC 10.7 H (4.0-10.5) x10^3/uL RBC 5.14 (4.1-5.4) x10^6/uL Hgb 14.9 (12.0-16.0) g/dL Hct 44.9 (35-47) % MCV 87.4 (78-100) fL MCH 29.0 (26-32) pg MCHC 33.2 (32-36) g/dL RDW 13.0 (11.5-14.0) % Plt Count 405 (150-450) x10^3/uL MPV 8.9 (7.5-11.0) fL Gran % 74.2 H (36.0-66.0) % Immature Gran % (Auto) 0.5 H (0.00-0.4) % Nucleat RBC Rel Count 0.0 (0.00-0.1) % Eos # (Auto) 0.04 (0-0.5) x10^3/uL Immature Gran # (Auto) 0.05 H (0.00-0.03) x10^3u/L Absolute Lymphs (auto) 1.85 (1.0-4.6) x10^3/uL Absolute Monos (auto) 0.72 (0.0-1.3) x10^3/uL Absolute Nucleated RBC 0.00 (0.00-0.01) x10^3u/L Lymphocytes % 17.2 L (24.0-44.0) % Monocytes % 6.7 (0.0-12.0) % Eosinophils % 0.4 (0.00-5.0) % Basophils % 1.0 (0.0-0.4) % Absolute Granulocytes 7.96 H (1.4-6.9) x10^3/uL Basophils # 0.11 (0-0.4) x10^3/uL Sodium 137 (137-145) mmol/L Potassium 3.8 (3.5-5.1) mmol/L Chloride 104 (98-107) mmol/L Carbon Dioxide 23 (22-30) mmol/L Anion Gap 13.6 (5-15) MEQ/L BUN 14 (7-17) mg/dL Creatinine 0.86 (0.52-1.04) mg/dL Estimated GFR > 60.0 ML/MIN Glucose 103 (74-106) mg/dL Lactic Acid (0.4-2.0) Calcium 9.2 (8.4-10.2) mg/dL Total Bilirubin 0.90 (0.2-1.3) mg/dL AST 33 (14-36) U/L ALT 39 H (0-35) U/L Alkaline Phosphatase 122 (38-126) U/L Troponin I < 0.012 (0.000-0.034) ng/mL Serum Total Protein 7.1 (6.3-8.2) g/dL Albumin 4.2 (3.5-5.0) g/dL Lipase 42 (23-300) U/L Influenza Type A Ag (NEGATIVE) Influenza Type B Ag (NEGATIVE) RSV (PCR) (Negative) SARS-CoV-2 (PCR) (NEGATIVE) 11/19/22 11/19/22 11/20/22 Range/Units 21:45 23:40 01:25 WBC (4.0-10.5) x10^3/uL RBC (4.1-5.4) x10^6/uL Hgb (12.0-16.0) g/dL Hct (35-47) % MCV (78-100) fL MCH (26-32) pg MCHC (32-36) g/dL RDW (11.5-14.0) % Plt Count (150-450) x10^3/uL MPV (7.5-11.0) fL Gran % (36.0-66.0) % Immature Gran % (Auto) (0.00-0.4) % Nucleat RBC Rel Count (0.00-0.1) % Eos # (Auto) (0-0.5) x10^3/uL Immature Gran # (Auto) (0.00-0.03) x10^3u/L Absolute Lymphs (auto) (1.0-4.6) x10^3/uL Absolute Monos (auto) (0.0-1.3) x10^3/uL Absolute Nucleated RBC (0.00-0.01) x10^3u/L Lymphocytes % (24.0-44.0) % Monocytes % (0.0-12.0) % Eosinophils % (0.00-5.0) % Basophils % (0.0-0.4) % Absolute Granulocytes (1.4-6.9) x10^3/uL Basophils # (0-0.4) x10^3/uL Sodium (137-145) mmol/L Potassium (3.5-5.1) mmol/L Chloride (98-107) mmol/L Carbon Dioxide (22-30) mmol/L Anion Gap (5-15) MEQ/L BUN (7-17) mg/dL Creatinine (0.52-1.04) mg/dL Estimated GFR ML/MIN Glucose (74-106) mg/dL Lactic Acid 1.4 (0.4-2.0) Calcium (8.4-10.2) mg/dL Total Bilirubin (0.2-1.3) mg/dL AST (14-36) U/L ALT (0-35) U/L Alkaline Phosphatase (38-126) U/L Troponin I < 0.012 (0.000-0.034) ng/mL Serum Total Protein (6.3-8.2) g/dL Albumin (3.5-5.0) g/dL Lipase (23-300) U/L Influenza Type A Ag NEGATIVE (NEGATIVE) Influenza Type B Ag NEGATIVE (NEGATIVE) RSV (PCR) NEGATIVE (Negative) SARS-CoV-2 (PCR) NEGATIVE (NEGATIVE) - Radiology Impressions Radiology Exams & Impressions: Radiology Procedures Category Date Time Status ABDOMEN AND PELVIS W/0 CONTRAS [CT] Stat Exams 11/19/22 21:35 Completed Telemedicine Encounter - Telemedicine Encounter Telemedicine Encounter: ASSESSMENT 1. Constipation 2. Diverticulitis vs. Colitis 3. Sigmoid Colonic Thickening 4. Hypothyroidism 5. Inlap-2-Yshoqirwyyh Deficiency c/b COPD and Liver Disease 6. Irritable Bowel Syndrome 7. Crohn's Disease PLAN 1. Continue with Levaquin and Flagyl 2. Fluids 3. Pain Control 4. Golytely for potential colonoscopy 5. IV BP control Lovenox/PPI The entirety of this encounter was done via telemedicine Brian Ramirez MD Pulmonary and Critical Care Medicine
[2022-11-20] MEDS: DEMEROL 50 MG IV PRN ×3 (03:14→16:50)
[2022-11-20 03:18] LABS: Appearance Clear (Clear)
[2022-11-20 03:19] LABS: Ketones 40 (Negative); Leukocyte Esterase Small (Negative); Nitrite Negative (Negative); Protein,Urine Dip Negative (Negative); Specific Gravity 1.015 (1.005-1.030)
[2022-11-20 03:20] LABS: Bacteria None Seen /HPF (None Seen); Bilirubin Negative (Negative); Blood Negative (Negative); Epithelial Cells None Seen /HPF (None Seen); Glucose, Urine Negative (Negative); RBC 0-2 /HPF (0-5); Urobilinogen 0.2 mg/dL (0.2)
[2022-11-20 03:21] LABS: Hyaline Casts NONE SEEN /LPF (0-2)
[2022-11-20 03:22] LABS: ADD URINE CULTURE? YES (NO)
[2022-11-20] MEDS ORDERED: APRESOLINE 20 MG/ML INJ IV PRN (03:32)
[2022-11-20] MEDS: FLAGYL 500 MG IVPB 500 MG/100 ML BAG IV SCH ×3 (05:36→17:45)
[2022-11-20] MEDS: Lactated Ringers 1,000 ML IV SCH ×2 (05:36→16:51)
[2022-11-20 05:50] LABS: Absolute Neutrophil Ct (ANC) 7.26 x10^3/uL (1.4-6.9); BASOPHIL % 0.6 % (0.0-0.4); Basophil (Absolute #) 0.05 x10^3/uL (0-0.4); Eosinophil % 0.1 % (0.00-5.0); Eosinophil (Absolute #) 0.01 x10^3/uL (0-0.5); Hematocrit 40.5 % (35-47); Hemoglobin 13.4 g/dL (12.0-16.0); IMMATURE GRAN # 0.05 x10^3u/L (0.00-0.03); IMMATURE GRAN % 0.6 % (0.00-0.4); Lymphocyte (Absolute #) 0.85 x10^3/uL (1.0-4.6); Lymphocytes % 9.6 % (24.0-44.0); Mean Cell Volume 88.2 fL (78-100); Mean Corpuscular Hemoglobin 29.2 pg (26-32); Mean Corpuscular Hgb Concent. 33.1 g/dL (32-36); Mean Platelet Volume 8.8 fL (7.5-11.0); Monocyte (Absolute #) 0.64 x10^3/uL (0.0-1.3); Monocytes % 7.2 % (0.0-12.0); Neutrophil % 81.9 % (36.0-66.0); Platelet Count 327 x10^3/uL (150-450); Red Blood Count 4.59 x10^6/uL (4.1-5.4); Red Cell Distribution Width 13.2 % (11.5-14.0); White Blood Count 8.9 x10^3/uL (4.0-10.5)
[2022-11-20 06:16] LABS: ALBUMIN 3.4 g/dL (3.5-5.0); ALKALINE PHOSPHATASE 96 U/L (38-126); ANION GAP 11.4 MEQ/L (5-15); BLOOD UREA NITROGEN 12 mg/dL (7-17); CHLORIDE 110 mmol/L (98-107); Calcium 8.6 mg/dL (8.4-10.2); Carbon Dioxide 21 mmol/L (22-30); EST GLOMERULAR FILTRATION RATE > 60.0 ML/MIN; Glucose 109 mg/dL (74-106); Potassium 4.4 mmol/L (3.5-5.1); SGOT/AST 29 U/L (14-36); SGPT/ALT 34 U/L (0-35); SODIUM 139 mmol/L (137-145); Total Protein 5.8 g/dL (6.3-8.2)
[2022-11-20] MEDS ORDERED: MEDICATION INTERVENTION MC SCH (08:30)
[2022-11-20] MEDS ORDERED: Levofloxacin 500MG/100ML D5W 500 MG/100 ML BAG IV SCH (10:00)
[2022-11-20] MEDS ORDERED: ENOXAPARIN SODIUM SQ SCH (10:00)
[2022-11-20] MEDS: PROTONIX 40 MG IV IV SCH (10:38)
[2022-11-20] MEDS ORDERED: Golytely Solution 4000 ML PO ONE (14:00)
[2022-11-20] MEDS: Compazine 10 MG/2 ML IV PRN (18:46)
[2022-11-20] MEDS: Levofloxacin 500MG/100ML D5W 500 MG/100 ML BAG IV SCH (22:14)
[2022-11-21] MEDS: FLAGYL 500 MG IVPB 500 MG/100 ML BAG IV SCH ×4 (00:54→17:56)
[2022-11-21] MEDS: Lactated Ringers 1,000 ML IV SCH ×2 (05:55→17:13)
--- NOTE | 2022-11-21 08:13 | PCM.NOTE ---
Date and Time: 11/21/22 0810 Subjective Assessment: patient had vomiting with golytely, hasn't been able to tolerate much, was having a great deal of vomiting. she is feeling better today, had some results with enema but not much, still feels like things are sitting in her upper colon from prep. her pain is currently a 3-4/10 which is the lowest it has been in days and she was able to sleep last night for the first time in several days. Objective Exam General Appearance: no apparent distress, obese Neurologic Exam: alert, oriented x 3 Respiratory Exam: normal breath sounds, lungs clear, No respiratory distress Cardiovascular Exam: regular rate/rhythm, normal heart sounds Gastrointestinal/Abdomen Exam: soft, tenderness (minimal LLQ) OBJECTIVE DATA Vital Signs: Vital Signs - 24 hr Temp Pulse Resp BP BP Pulse Ox 11/21/22 07:49 97.5 F 70 16 112/57 92 L 11/21/22 04:46 97.6 F 82 18 108/53 96 11/21/22 01:00 20 11/20/22 20:00 85 20 140/62 95 11/20/22 18:40 89 16 95 11/20/22 16:31 156/79 11/20/22 16:00 98.2 F 79 16 159/67 97 11/20/22 11:58 85 16 94 L 11/20/22 11:25 97.8 F 83 15 132/63 95 Pain Assessment - Last Documented Pain Intensity 0 Intake and Output: Intake & Output 11/18/22 11/19/22 11/20/22 11/21/22 11:59 11:59 11:59 12:59 Intake Total 1238 2557 Output Total 1200 300 Balance 38 2257 Weight 95 kg Lab Results: Lab Results-Last 24 Hours 11/19/22 Range/Units Unknown Stool Occult Blood POSITIVE A (NEGATIVE) Radiology Exams: Radiology Procedures Category Date Time Status ABDOMEN AND PELVIS W/0 CONTRAS [CT] Stat Exams 11/19/22 21:35 Completed Assessment/Plan (1) Constipation Current Visit: Yes Status: Acute Assessment & Plan: repeat enema, ordered soap suds, will try to complete prep after it is given. Code(s): K59.00 - CONSTIPATION, UNSPECIFIED (2) Colon wall thickening Current Visit: Yes Status: Acute Assessment & Plan: continue levaquin/flagyl, surgery has been consulted, hoping for c-scope tomorrow if able to prep. she had a scope a year ago per pt reports, sees [facility] for Crohns. Code(s): K63.9 - DISEASE OF INTESTINE, UNSPECIFIED (3) Crohn's disease Current Visit: Yes Status: Acute Code(s): K50.90 - CROHN'S DISEASE, UNSPECIFIED, WITHOUT COMPLICATIONS
[2022-11-21] MEDS: SYNTHROID 50 MCG PO SCH (08:37)
[2022-11-21] MEDS: PROTONIX 40 MG IV IV SCH (09:31)
[2022-11-21] MEDS: Miralax Powder 17GM PACKET PO SCH (09:33)
[2022-11-21] MEDS: Zestril 5 MG PO SCH (09:34)
[2022-11-21] MEDS: Reglan 10 MG/2 ML IV SCH ×2 (09:51→17:55)
[2022-11-21] MEDS ORDERED: PATIENT OWN MEDICATION IH SCH (10:00)
[2022-11-21] MEDS: Compazine 10 MG/2 ML IV PRN (12:24)
[2022-11-21] MEDS ORDERED: Golytely Solution 4000 ML PO ONE (14:00)
[2022-11-21] MEDS: Levofloxacin 500MG/100ML D5W 500 MG/100 ML BAG IV SCH (21:42)
[2022-11-22] MEDS: Reglan 10 MG/2 ML IV SCH ×5 (00:41→23:54)
[2022-11-22] MEDS: FLAGYL 500 MG IVPB 500 MG/100 ML BAG IV SCH ×5 (00:41→23:54)
[2022-11-22 04:37] LABS: Absolute Neutrophil Ct (ANC) 2.39 x10^3/uL (1.4-6.9); BASOPHIL % 1.5 % (0.0-0.4); Basophil (Absolute #) 0.06 x10^3/uL (0-0.4); Eosinophil % 1.8 % (0.00-5.0); Eosinophil (Absolute #) 0.07 x10^3/uL (0-0.5); Hemoglobin 12.4 g/dL (12.0-16.0); IMMATURE GRAN # 0.02 x10^3u/L (0.00-0.03); IMMATURE GRAN % 0.5 % (0.00-0.4); Lymphocyte (Absolute #) 1.04 x10^3/uL (1.0-4.6); Lymphocytes % 26.3 % (24.0-44.0); Mean Cell Volume 89.4 fL (78-100); Mean Corpuscular Hemoglobin 29.2 pg (26-32); Mean Corpuscular Hgb Concent. 32.6 g/dL (32-36); Mean Platelet Volume 8.8 fL (7.5-11.0); Monocyte (Absolute #) 0.38 x10^3/uL (0.0-1.3); Monocytes % 9.6 % (0.0-12.0); Neutrophil % 60.3 % (36.0-66.0); Platelet Count 292 x10^3/uL (150-450); Red Blood Count 4.25 x10^6/uL (4.1-5.4); Red Cell Distribution Width 12.9 % (11.5-14.0)
[2022-11-22 05:06] LABS: ALBUMIN 3.2 g/dL (3.5-5.0); ALKALINE PHOSPHATASE 91 U/L (38-126); ANION GAP 10.1 MEQ/L (5-15); BLOOD UREA NITROGEN 8 mg/dL (7-17); CHLORIDE 107 mmol/L (98-107); Calcium 8.3 mg/dL (8.4-10.2); Carbon Dioxide 26 mmol/L (22-30); Creatinine 1 0.69 mg/dL (0.52-1.04); EST GLOMERULAR FILTRATION RATE > 60.0 ML/MIN; Glucose 83 mg/dL (74-106); MAGNESIUM 1.8 mg/dL (1.6-2.3); Potassium 3.4 mmol/L (3.5-5.1); SGOT/AST 65 U/L (14-36); SGPT/ALT 60 U/L (0-35); SODIUM 139 mmol/L (137-145); Total Protein 5.5 g/dL (6.3-8.2)
[2022-11-22] MEDS: Lactated Ringers 1,000 ML IV SCH ×2 (05:56→17:40)
[2022-11-22] MEDS: SYNTHROID 50 MCG PO SCH (05:56)
--- NOTE | 2022-11-22 08:57 | PCM.NOTE ---
Date and Time: 11/22/22 0852 Subjective Assessment: She is having 3/10 abd pain. Site on L upper arm where IV infiltrated now with less erythema. Finished Go-lytely at 1 am. - Review of Systems Constitutional: No Fever Abdominal/Gastrointestinal: Abdominal Pain Objective Exam General Appearance: no apparent distress, alert, obese Neurologic Exam: oriented x 3, cooperative Skin Exam: normal color, warm, dry, No rash Eye Exam: No scleral icterus Ears, Nose, Throat Exam: moist mucous membranes Neck Exam: normal inspection Respiratory Exam: normal breath sounds, lungs clear, No crackles/rales, No rhonchi, No wheezing Cardiovascular Exam: regular rate/rhythm, normal heart sounds, No murmur Gastrointestinal/Abdomen Exam: soft, normal bowel sounds, tenderness (suprapubic, LLQ, RLQ), No distention, No mass, No guarding, No rebound Extremity Exam: other (LUE, antecubital fossa, with no erythema, mild generalized edema, soft with no fluctuance or induration, no pus, nttp), No pedal edema, No swelling Back Exam: normal inspection, No rash OBJECTIVE DATA Vital Signs: Vital Signs - 24 hr Temp Pulse Resp BP Pulse Ox 11/22/22 04:00 97.6 F 71 18 123/56 96 11/21/22 23:32 97.1 F 78 18 122/57 97 11/21/22 19:17 98.2 F 82 20 147/67 98 11/21/22 16:00 97.7 F 75 18 136/65 95 11/21/22 12:00 97.7 F 72 16 145/66 95 Pain Assessment - Last Documented Pain Intensity 3 Intake and Output: Intake & Output 11/19/22 11/20/22 11/21/22 11/22/22 10:59 10:59 11:59 11:59 Intake Total 5551 Output Total Balance 5551 Weight Lab Results: Lab Results-Last 24 Hours 11/22/22 11/22/22 Range/Units 04:20 04:20 WBC 4.0 (4.0-10.5) x10^3/uL RBC 4.25 (4.1-5.4) x10^6/uL Hgb 12.4 (12.0-16.0) g/dL Hct 38.0 (35-47) % MCV 89.4 (78-100) fL MCH 29.2 (26-32) pg MCHC 32.6 (32-36) g/dL RDW 12.9 (11.5-14.0) % Plt Count 292 (150-450) x10^3/uL MPV 8.8 (7.5-11.0) fL Gran % 60.3 (36.0-66.0) % Immature Gran % (Auto) 0.5 H (0.00-0.4) % Nucleat RBC Rel Count 0.0 (0.00-0.1) % Eos # (Auto) 0.07 (0-0.5) x10^3/uL Immature Gran # (Auto) 0.02 (0.00-0.03) x10^3u/L Absolute Lymphs (auto) 1.04 (1.0-4.6) x10^3/uL Absolute Monos (auto) 0.38 (0.0-1.3) x10^3/uL Absolute Nucleated RBC 0.00 (0.00-0.01) x10^3u/L Lymphocytes % 26.3 (24.0-44.0) % Monocytes % 9.6 (0.0-12.0) % Eosinophils % 1.8 (0.00-5.0) % Basophils % 1.5 (0.0-0.4) % Absolute Granulocytes 2.39 (1.4-6.9) x10^3/uL Basophils # 0.06 (0-0.4) x10^3/uL Sodium 139 (137-145) mmol/L Potassium 3.4 L D (3.5-5.1) mmol/L Chloride 107 (98-107) mmol/L Carbon Dioxide 26 (22-30) mmol/L Anion Gap 10.1 (5-15) MEQ/L BUN 8 (7-17) mg/dL Creatinine 0.69 (0.52-1.04) mg/dL Estimated GFR > 60.0 ML/MIN Glucose 83 (74-106) mg/dL Calcium 8.3 L (8.4-10.2) mg/dL Magnesium 1.8 (1.6-2.3) mg/dL Total Bilirubin 0.50 (0.2-1.3) mg/dL AST 65 H (14-36) U/L ALT 60 H (0-35) U/L Alkaline Phosphatase 91 (38-126) U/L Serum Total Protein 5.5 L (6.3-8.2) g/dL Albumin 3.2 L (3.5-5.0) g/dL Assessment/Plan (1) Diverticulitis large intestine Current Visit: Yes Status: Acute Qualifiers: Diverticulitis bleeding: without bleeding Diverticulitis complication: without perforation or abscess Qualified Code(s): K57.32 - Diverticulitis of large intestine without perforation or abscess without bleeding Assessment & Plan: She is on IV flagly and levaquin, day #3. Pain well controlled. Code(s): K57.32 - DVTRCLI OF LG INT W/O PERFORATION OR ABSCESS W/O BLEEDING (2) Colon wall thickening Current Visit: Yes Status: Acute Assessment & Plan: Unsure if this is benign, so she is having colonoscopy with surgery, possibly today, thank you. Code(s): K63.9 - DISEASE OF INTESTINE, UNSPECIFIED (3) Crohn's disease Current Visit: Yes Status: Chronic Qualifiers: Gastrointestinal tract location: unspecified location Digestive disease complication type: without complication Qualified Code(s): K50.90 - Crohn's disease, unspecified, without complications Code(s): K50.90 - CROHN'S DISEASE, UNSPECIFIED, WITHOUT COMPLICATIONS (4) HTN (hypertension) Current Visit: Yes Status: Chronic Qualifiers: Hypertension type: primary hypertension Qualified Code(s): I10 - Essential (primary) hypertension Code(s): I10 - ESSENTIAL (PRIMARY) HYPERTENSION (5) Asthma Current Visit: Yes Status: Chronic Qualifiers: Asthma severity: mild Asthma persistence: intermittent Asthma complication type: uncomplicated Qualified Code(s): J45.20 - Mild intermittent asthma, uncomplicated Code(s): J45.909 - UNSPECIFIED ASTHMA, UNCOMPLICATED
[2022-11-22] MEDS: Zestril 5 MG PO SCH (09:26)
[2022-11-22] MEDS: PROTONIX 40 MG IV IV SCH (09:26)
[2022-11-22] MEDS: Miralax Powder 17GM PACKET PO SCH (09:29)
--- NOTE | 2022-11-22 09:31 | CONS ---
CONSULT DATE: 11/20/2022 HISTORY: The patient presented with progressive obstipation over four week period. She had been using laxatives. She needs laxatives. She said four weeks ago it started not to work. Two weeks ago it was worse. She has not had a bowel movement in about a week now. She said she was told she had Crohn's as a child but she has never been on any Crohn's medication. It seems like she has a history of obstipation with bouts of diarrhea. She does have some left lower quadrant tenderness and complaining of pain. CT scan shows a positive stricture in the colon. She had a colonoscopy a year ago that was satisfactory. She had a cholecystectomy about a year ago which was helpful. IMPRESSION: With the current CT scan they are recommending a colonoscopy. I will see if they can get this prepped. They have been working on prep for three hours and has not started having stools yet. We will do what we need to do to prep her in order to exam her.
[2022-11-22] MEDS: PATIENT OWN MEDICATION IH SCH ×2 (09:50→21:56)
[2022-11-22] MEDS ORDERED: Golytely Solution 4000 ML PO ONE (11:00)
[2022-11-22] MEDS: Compazine 10 MG/2 ML IV PRN (11:19)
[2022-11-22] MEDS: Levofloxacin 500MG/100ML D5W 500 MG/100 ML BAG IV SCH (21:19)
[2022-11-23] MEDS: Reglan 10 MG/2 ML IV SCH ×2 (06:04→11:36)
[2022-11-23] MEDS: FLAGYL 500 MG IVPB 500 MG/100 ML BAG IV SCH ×2 (06:04→11:36)
[2022-11-23] MEDS: SYNTHROID 50 MCG PO SCH (06:04)
[2022-11-23] MEDS: PATIENT OWN MEDICATION IH SCH (06:11)
[2022-11-23 07:13] LABS: Absolute Neutrophil Ct (ANC) 2.77 x10^3/uL (1.4-6.9); BASOPHIL % 1.2 % (0.0-0.4); Basophil (Absolute #) 0.05 x10^3/uL (0-0.4); Eosinophil % 1.4 % (0.00-5.0); Eosinophil (Absolute #) 0.06 x10^3/uL (0-0.5); Hematocrit 37.4 % (35-47); Hemoglobin 12.4 g/dL (12.0-16.0); IMMATURE GRAN # 0.02 x10^3u/L (0.00-0.03); IMMATURE GRAN % 0.5 % (0.00-0.4); Lymphocyte (Absolute #) 0.87 x10^3/uL (1.0-4.6); Lymphocytes % 20.9 % (24.0-44.0); Mean Cell Volume 87.8 fL (78-100); Mean Corpuscular Hemoglobin 29.1 pg (26-32); Mean Corpuscular Hgb Concent. 33.2 g/dL (32-36); Mean Platelet Volume 8.6 fL (7.5-11.0); Monocyte (Absolute #) 0.39 x10^3/uL (0.0-1.3); Monocytes % 9.4 % (0.0-12.0); Neutrophil % 66.6 % (36.0-66.0); Platelet Count 277 x10^3/uL (150-450); Red Blood Count 4.26 x10^6/uL (4.1-5.4); Red Cell Distribution Width 12.9 % (11.5-14.0); White Blood Count 4.2 x10^3/uL (4.0-10.5)
[2022-11-23] MEDS: Zestril 5 MG PO SCH (09:33)
[2022-11-23 09:35] LABS: ALBUMIN 3.3 g/dL (3.5-5.0); ALKALINE PHOSPHATASE 86 U/L (38-126); ANION GAP 13.6 MEQ/L (5-15); BLOOD UREA NITROGEN 6 mg/dL (7-17); CHLORIDE 106 mmol/L (98-107); Calcium 8.6 mg/dL (8.4-10.2); Carbon Dioxide 24 mmol/L (22-30); EST GLOMERULAR FILTRATION RATE > 60.0 ML/MIN; Glucose 87 mg/dL (74-106); Potassium 3.8 mmol/L (3.5-5.1); SGOT/AST 62 U/L (14-36); SGPT/ALT 61 U/L (0-35); SODIUM 141 mmol/L (137-145); Total Protein 5.7 g/dL (6.3-8.2)
[2022-11-23] MEDS: PROTONIX 40 MG IV IV SCH (09:35)
[2022-11-23] MEDS: Miralax Powder 17GM PACKET PO SCH (09:35)
[2022-11-23] MEDS: Lactated Ringers 1,000 ML IV SCH (09:47)
[2022-11-23 11:40] VITALS: BP 144/75; PULSE 75; O2SAT 100
--- NOTE | 2022-11-23 14:15 | PCM.DS ---
Discharge Summary Date of Admission: 11/20/22 01:19 Admitting Physician: RICARDO CHAVEZ MD Consults: Consults on Case 11/20/22 01:36 Consult Surgery ROUTINE Primary Care Provider: GIL DALE Allergies Allergies amoxicillin Adverse Reaction (Verified 11/19/22 21:21) cefdinir Adverse Reaction (Verified 11/19/22 21:21) codeine Adverse Reaction (Verified 11/19/22 21:21) Opioids - Morphine Analogues Adverse Reaction (Verified 11/19/22 21:21) pill form makes her vomit Hospital Summary - Hospital Course Hospital Course: Pt is a 67 yo female with pmhx hypothyroidism, COPD and liver disease secondary to alpha-1 antitrypsin deficiency, IBS, and Crohn's disease who came to ER with abd pain and decreased bowel movements. Was dx with diverticulitis, started on IV flagyl and levaquin. Her WBC were 10.7. CT abd/pelvis showed bowel wall thickening/stranding favoring colitis/diverticulitis, but mass not ruled out. Surgery was consulted, thank you. She had a very difficult time with the colonoscopy prep and just has not been able to run clear. She still had a colonoscopy scheduled for later this afternoon, but is opting to go home and complete the colonoscopy outpatient. Her pain this morning was minimal. She would like to eat and go home. Her 4th IV went bad this afternoon. - Vitals & Intake/Output Vital Signs: Vital Signs Temperature 97.7 F 11/23/22 11:40 Pulse Rate 75 11/23/22 11:40 Respiratory Rate 18 11/23/22 11:40 Blood Pressure 144/75 11/23/22 11:40 O2 Sat by Pulse Oximetry 100 11/23/22 11:40 Intake & Output: Intake & Output 11/21/22 11/22/22 11/23/22 11/24/22 11:59 11:59 11:59 11:59 Intake Total 5551 3807 Output Total Balance 5551 3807 Weight 95 kg - Lab Result Diagrams: 11/23/22 07:05 11/23/22 07:05 Lab Results-Last 24 Hrs: Lab Results-Last 24 Hours 11/23/22 11/23/22 Range/Units 07:05 07:05 WBC 4.2 (4.0-10.5) x10^3/uL RBC 4.26 (4.1-5.4) x10^6/uL Hgb 12.4 (12.0-16.0) g/dL Hct 37.4 (35-47) % MCV 87.8 (78-100) fL MCH 29.1 (26-32) pg MCHC 33.2 (32-36) g/dL RDW 12.9 (11.5-14.0) % Plt Count 277 (150-450) x10^3/uL MPV 8.6 (7.5-11.0) fL Gran % 66.6 H (36.0-66.0) % Immature Gran % (Auto) 0.5 H (0.00-0.4) % Nucleat RBC Rel Count 0.0 (0.00-0.1) % Eos # (Auto) 0.06 (0-0.5) x10^3/uL Immature Gran # (Auto) 0.02 (0.00-0.03) x10^3u/L Absolute Lymphs (auto) 0.87 L (1.0-4.6) x10^3/uL Absolute Monos (auto) 0.39 (0.0-1.3) x10^3/uL Absolute Nucleated RBC 0.00 (0.00-0.01) x10^3u/L Lymphocytes % 20.9 L (24.0-44.0) % Monocytes % 9.4 (0.0-12.0) % Eosinophils % 1.4 (0.00-5.0) % Basophils % 1.2 (0.0-0.4) % Absolute Granulocytes 2.77 (1.4-6.9) x10^3/uL Basophils # 0.05 (0-0.4) x10^3/uL Sodium 141 (137-145) mmol/L Potassium 3.8 (3.5-5.1) mmol/L Chloride 106 (98-107) mmol/L Carbon Dioxide 24 (22-30) mmol/L Anion Gap 13.6 (5-15) MEQ/L BUN 6 L (7-17) mg/dL Creatinine 0.70 (0.52-1.04) mg/dL Estimated GFR > 60.0 ML/MIN Glucose 87 (74-106) mg/dL Calcium 8.6 (8.4-10.2) mg/dL Total Bilirubin 0.40 (0.2-1.3) mg/dL AST 62 H (14-36) U/L ALT 61 H (0-35) U/L Alkaline Phosphatase 86 (38-126) U/L Serum Total Protein 5.7 L (6.3-8.2) g/dL Albumin 3.3 L (3.5-5.0) g/dL Micro Results-Entire Visit: Microbiology 11/19/22 02:11 Urine Culture - Final Clean Catch Midstream <10K NORMAL SKIN CHICO PROBABLE SKIN CONTAMINANT - Procedures and Test Procedures and Tests throughout Hospitalization: Therapy Orders & Screens 11/20/22 11:58 Respiratory Therapy Assessment DAILY Comment: Diagnosis: Diverticulitis 11/21/22 10:00 Respiratory MDI QAM Comment: Diagnosis: Diverticulitis Discharge Exam General Appearance: no apparent distress, alert, obese Neurologic Exam: oriented x 3, cooperative Eye Exam: eyes nml inspection Ears, Nose, Throat Exam: moist mucous membranes Neck Exam: normal inspection Respiratory Exam: normal breath sounds, lungs clear, No crackles/rales, No rhonchi, No wheezing Cardiovascular Exam: regular rate/rhythm, normal heart sounds, No murmur Gastrointestinal/Abdomen Exam: soft, normal bowel sounds, tenderness (very mild LLQ), No distention, No mass, No guarding, No rebound Back Exam: normal inspection, No rash Extremity Exam: normal inspection, No pedal edema, No swelling Skin Exam: normal color, warm, dry, No rash Final Diagnosis/Problem List - Final Discharge Diagnosis/Problem (1) Diverticulitis large intestine Current Visit: Yes Status: Acute Assessment & Plan: Will send home on levaquin, flagyl, and probiotic (to complete 10d of antibiotic). Day #4 of abx today. F/u with me in 1 week. Return to ER for fever, blood in stool, or any other worrisome symptoms. Code(s): K57.32 - DVTRCLI OF LG INT W/O PERFORATION OR ABSCESS W/O BLEEDING (2) Colon wall thickening Current Visit: Yes Status: Acute Assessment & Plan: MUST follow up with outpatient colonoscopy/GI appt. Code(s): K63.9 - DISEASE OF INTESTINE, UNSPECIFIED (3) Crohn's disease Current Visit: Yes Status: Chronic Code(s): K50.90 - CROHN'S DISEASE, UNSPEC IFIED, WITHOUT COMPLICATIONS (4) HTN (hypertension) Current Visit: Yes Status: Chronic Code(s): I10 - ESSENTIAL (PRIMARY) HYPERTENSION (5) Asthma Current Visit: Yes Status: Chronic Code(s): J45.909 - UNSPECIFIED ASTHMA, UNCOMPLICATED - Discharge Disposition: Home, Self-Care Condition: Good Prescriptions: New Lactobacillus Acidophilus [Acidophilus TABLET] 1 tab PO TID #21 tablet Metronidazole 500 mg [Flagyl 500 MG] 500 mg PO TID 6 Days #20 tablet Levofloxacin [Levofloxacin 500 MG Tablet] 500 mg PO DAILY 6 Days #6 tablet Continue Nortriptyline HCl [Pamelor] 100 mg PO HS Mesalamine 1.2 mg PO DAILY Levothyroxine Sodium 50 Mcg [Synthroid 50 Mcg] 50 mcg PO DAILY Fluticasone/Umeclidin/Vilanter [Trelegy Ellipta 200-62.5-25] 1 each IH DAILY PANTOPRAZOLE 40 mg Tablet [Protonix 40MG Tablet] 40 mg PO QAM lisinopriL [Zestril] 2.5 mg PO DAILY Additional Instructions: DR Owen JAMESON'S OFFICE WILL CALL YOU TO SCHEDULE COLONOSCOPY Follow up with: SILVERIO JAMESON [ACTIVE STAFF] - GIL DALE [Primary Care Provider] -
== END 2022-11-23 15:11 | disposition home or self-care (01) ==
LOC: ED 21:10 → MED SURG 11-20 01:19
PROVIDERS: ADMIT Internal Medicine Critical Care Medicine; ATTEND Family Medicine
DX: K57.32 Diverticulitis of large intestine without perforation or abscess without bleeding (principal); K63.9 Disease of intestine, unspecified; K50.90 Crohn's disease, unspecified, without complications; I10 Essential (primary) hypertension; E03.9 Hypothyroidism, unspecified; K58.1 Irritable bowel syndrome with constipation; E88.01 Alpha-1-antitrypsin deficiency; J44.9 Chronic obstructive pulmonary disease, unspecified; J45.909 Unspecified asthma, uncomplicated; D72.829 Elevated white blood cell count, unspecified; Z79.899 Other long term (current) drug therapy; Z20.828 Contact with and (suspected) exposure to other viral communicable diseases
CPT/HCPCS: 0241U; 36000; 36415; 74176; 80053; 81001; 83605; 83690; 83735; 84484; 85025; 87086; 93005; 94640; 94760; 96360; 96365; 96368; 96374; 96375; 99285; G0328; G0378; 82274; J1650; J1956; J2175; J2405; A9270-GY

== ENCOUNTER 2023-01-20 07:30 | Day surgery (SDC) | payer MEDICARE ==
[2023-01-20] MEDS ORDERED: Lactated Ringers 1,000 ML IV SCH (08:00)
[2023-01-20] MEDS ORDERED: Lactated Ringers 1,000 ML IV ONE (08:02)
[2023-01-20] MEDS ORDERED: Pepcid 20 MG VIAL IV ONE (09:29)
[2023-01-20] MEDS ORDERED: Reglan 10 MG/2 ML IV ONE (09:29)
[2023-01-20] MEDS ORDERED: DIPRIVAN 200 MG/20 ML IV ONE ×2 (10:48→11:02)
[2023-01-20] MEDS ORDERED: Xylocaine-Mpf 2% 5 Ml Vial ONE (10:48)
[2023-01-20] MEDS ORDERED: Versed 2 MG/2 ML Injection ONE (10:48)
[2023-01-20 11:47] VITALS: BP 130/91; PULSE 77; O2SAT 98
--- NOTE | 2023-01-20 13:22 | OP ---
SURGERY DATE/TIME: 01/20/2023 1056 PREOPERATIVE DIAGNOSIS: Left flank left side abdominal discomfort, history of diverticulitis and stricture. POSTOPERATIVE DIAGNOSIS: The patient has substantial diverticular disease. I do not see complications from it yet. PROCEDURE: Colonoscopy complete to cecum. SURGEON: Rickie Gaxiola M.D. ANESTHESIA: MAC. COMPLICATIONS: None. CONDITION: Stable. INDICATION: A 67-year-old white female currently has some left flank left side abdominal discomfort. She has been told that she has a stricture of her colon. She has been told that she has diverticulosis/diverticulitis. She has been treated for diverticulitis several times. She has had her bowel prep. Seems prudent to go ahead at this time to at least attempt colonoscopic examination. If for some reason she is too swollen or not readily navigable it could be stopped at any time. DESCRIPTION OF PROCEDURE: Anal digital examination satisfactory. Scope introduced. Rectum was normal. Three valves of Gonzalez normal. Rectosigmoid junction normal. In the sigmoid there was moderate diverticulosis. There was some spasm. There was some general diameter reduction but there was no stricture at all and once you pass the sigmoid/descending junction this cleared nicely. The rest of the exam was normal. Base of the cecum, ileocecal valve, appendiceal orifice normal. Ascending normal. Transverse colon normal. Splenic flexure normal. Descending colon normal. Sigmoid moderate diverticulosis. Rectum satisfactory. Hemorrhoidal area satisfactory. The patient tolerated the procedure satisfactorily. Five year follow up.
== END 2023-01-20 12:00 | disposition home or self-care (01) ==
LOC: SDC 07:30
PROVIDERS: ATTEND Surgery
DX: K57.30 Diverticulosis of large intestine without perforation or abscess without bleeding (principal); R10.12 Left upper quadrant pain; Z87.19 Personal history of other diseases of the digestive system
CPT/HCPCS: J2250; J2704

== ENCOUNTER 2024-11-11 12:42 | Emergency (ER) | payer MEDICARE ==
[2024-11-11 13:04] VITALS: TEMP 97
--- NOTE | 2024-11-11 13:41 | ERPHSYRPT ---
- History of Present Illness Historian: patient Exam Limitations: no limitations Timing/Duration: week(s) (2) Activities at Onset: none Quality: sharpness, stabbing Abdominal Pain Onset Location: generalized abdomen Pain Radiation: no radiation Severity of Pain-Max: severe Severity of Pain-Current: severe Modifying Factors: Improves With: nothing. Worsens With: movement, palpation, vomiting Associated Symptoms: loss of appetite, nausea, vomiting Previous symptoms: same symptoms as today Hx Tetanus, Diphtheria Vaccination/Date Given: Yes Hx Influenza Vaccination/Date Given: No Hx Pneumococcal Vaccination/Date Given: Yes - History of Present Illness Time Seen by Provider: 11/11/24 13:41 Physician History: The patient, with a history of pancreatitis and diverticulitis, presents with abdominal pain and suspected pancreatitis. He has been experiencing unusual abdominal pain for the past couple of weeks, which intensified last Tuesday. The pain is described as sharp and dull, affecting the entire abdomen, and sometimes radiating to the shoulder blades. He has a history of pancreatitis three years ago and was treated for diverticulitis and severe constipation two years ago. He has managed these conditions without recurrence until now. He has been off Mounjaro for three weeks after losing seventy pounds over the past year. He stopped the medication because he felt something was not right internally, which he associates with the onset of his current symptoms. He previously experienced pancreatitis while on Ozempic and is concerned about a similar occurrence. He has not eaten since late yesterday and cannot drink without needing to use the bathroom immediately, which causes extreme pain. He reports being dehydrated and experiencing lots of nausea but no vomiting. No fevers unless severely ill. He reports chest pain and shortness of breath when moving, with pain in the chest accompanying abdominal pain. He also mentions abdominal swelling and soreness in the anal area with bleeding, making it difficult to determine if there is blood in the stool. (MUNDO BUSCH) Allergies/Adverse Reactions: amoxicillin Adverse Reaction (Verified 11/11/24 13:05) cefdinir Adverse Reaction (Verified 11/11/24 13:05) codeine Adverse Reaction (Verified 11/11/24 13:05) Opioids - Morphine Analogues Adverse Reaction (Verified 11/11/24 13:05) pill form makes her vomit, stops gut Home Medications: Mesalamine 1.2 mg PO DAILY 03/09/19 [History] Nortriptyline HCl [Pamelor] 100 mg PO HS 03/09/19 [History] Fluticasone/Umeclidin/Vilanter [Trelegy Ellipta 200-62.5-25] 1 each IH DAILY 11/20/22 [History] Levothyroxine Sodium 50 Mcg [Synthroid 50 Mcg] 50 mcg PO DAILY 11/20/22 [History] PANTOPRAZOLE 40 mg Tablet [Protonix 40MG Tablet] 40 mg PO QAM 11/20/22 [History] lisinopriL [Zestril] 5 mg PO DAILY 11/20/22 [History] Liothyronine Sodium 5 mcg PO DAILY 01/03/23 [History] Montelukast Sodium 10 mg [Singulair 10 MG] 10 mg PO DAILY 01/03/23 [History] Lifitegrast [Xiidra] 1 each OP DAILY 11/11/24 [History] Tirzepatide [Mounjaro] 12.5 mg SQ UD 11/11/24 [History] - Review of Systems All Other Systems: Reviewed and Negative - Past Medical History Pertinent Past Medical History: Yes Neurological History: Migraines ENT History: No Pertinent History Cardiac History: No Pertinent History Respiratory History: Asthma, Bronchitis, COPD, Other Endocrine Medical History: Hypothyroidism Musculoskeletal History: No Pertinent History GI Medical History: Crohns Disease, Diverticulitis, Diverticulosis, Irritable Bowel, Polyps, Other Psycho-Social History: No Pertinent History Female Reproductive Disorders: Fibroids, Menstrual Problems, Abnormal Uterine Bleeding, Endometriosis Other Medical History: HX OF CHRONIC ASTHMATIC BRONCHITIS. LUNG FIBROSIS, alhpa 1 disease - Past Surgical History Past Surgical History: Yes Neuro Surgical History: No Pertinent History Cardiac: No Pertinent History Respiratory: No Pertinent History Gastrointestinal: Cholecystectomy Genitourinary: No Pertinent History Musculoskeletal: Joint Replacement Female Surgical History: Hysterectomy, Section Other Surgical History: knee replace x 2, liver bx - Social History Smoking Status: Never smoker Exposure to second hand smoke: No - Physical Exam General Appearance: no apparent distress Neck Exam: normal inspection, non-tender, full range of motion, No supple Respiratory Exam: normal breath sounds, lungs clear Cardiovascular Exam: regular rate/rhythm, capillary refill <2 sec Gastrointestinal/Abdomen Exam: soft, normal bowel sounds, tenderness (generalized), guarding, rebound, No distention, No mass Back Exam: No CVA tenderness Skin Exam: normal color, warm, dry SpO2 Interpretation: normal SpO2: 100 O2 Delivery: Room Air - Nursing Vital Signs Nursing Vital Signs: Initial Vital Signs Temperature 97 F 11/11/24 13:03 Pulse Rate 78 11/11/24 13:03 Respiratory Rate 18 11/11/24 13:03 Blood Pressure 157/80 11/11/24 13:03 O2 Sat by Pulse Oximetry 99 11/11/24 13:03 Pain Scale Pain Intensity 3 - Course Nursing assessment & vital signs reviewed: Yes EKG Interpreted by Me: RATE (74), NORMAL AXIS, NORMAL INTERVALS, NORMAL QRS, NORMAL ST-T Ordered Tests: Medication Summary Discontinued Medications Generic Name Dose Route Start Last Admin Trade Name Freq PRN Reason Stop Dose Admin Droperidol 1.25 mg 11/11/24 14:07 11/11/24 14:17 Droperidol 5 Mg/2 Ml Vial IV 11/11/24 14:08 1.25 mg STAT ONE Administration Droperidol Confirm 11/11/24 14:12 Droperidol 5 Mg/2 Ml Vial Administered 11/11/24 14:13 Dose 5 mg .ROUTE .STK-MED ONE Sodium Chloride 1,000 mls @ 999 mls/hr 11/11/24 14:07 11/11/24 15:18 Sodium Chloride 0.9% 1000 Ml IV 11/11/24 15:07 Infused .Q1H1M STA Infusion Sodium Chloride Confirm 11/11/24 14:12 Sodium Chloride 0.9% 1000 Ml Administered 11/11/24 14:13 Dose 1,000 mls @ ud .ROUTE .STK-MED ONE Lab/Rad Data: Laboratory Result Diagrams 11/11/24 13:59 11/11/24 13:59 Laboratory Results 11/11/24 11/11/24 11/11/24 Range/Units 17:49 14:09 14:01 WBC (3.98-10.04) x10^3/uL RBC (3.93-5.22) x10^6/uL Hgb (11.2-15.7) g/dL Hct (34.1-44.9) % MCV (79.4-94.8) fL MCH (25.6-32.2) pg MCHC (32.2-35.5) g/dL RDW (11.7-14.4) % Plt Count (182-369) x10^3/uL MPV (9.4-12.3) fL Gran % (34.0-71.1) % Immature Gran % (Auto) (0.001-0.429) % Nucleat RBC Rel Count (0.00-0.2) % Eos # (Auto) (0.04-0.36) x10^3/uL Immature Gran # (Auto) (0.001-0.031) x10^3u/L Absolute Lymphs (auto) (1.18-3.74) x10^3/uL Absolute Monos (auto) (0.24-0.86) x10^3/uL Absolute Nucleated RBC (0.00-0.012) x10^3u/L Lymphocytes % (19.3-51.7) % Monocytes % (4.7-12.5) % Eosinophils % (0.7-5.8) % Basophils % (0.1-1.2) % Absolute Granulocytes (1.56-6.13) x10^3/uL Basophils # (0.01-0.08) x10^3/uL Sodium (135-145) mmol/L Potassium (3.5-5.1) mmol/L Chloride (98-107) mmol/L Carbon Dioxide (22-30) mmol/L Anion Gap (5-15) MEQ/L BUN (7-17) mg/dL Creatinine (0.52-1.04) mg/dL Estimated GFR ML/MIN Glucose (74-106) mg/dL Lactic Acid 1.0 (0.4-2.0) Calcium (8.4-10.2) mg/dL Total Bilirubin (0.2-1.3) mg/dL AST (14-36) U/L ALT (0-35) U/L Alkaline Phosphatase (38-126) U/L Troponin I < 0.012 (0.000-0.033) ng/mL Serum Total Protein (6.3-8.2) g/dL Albumin (3.5-5.0) g/dL Lipase (23-300) U/L Urine Color Dark Yellow A (Yellow) Urine Appearance Clear (Clear) Urine pH 8.5 A (4.6-8.0) Ur Specific Wol[place] 1.025 (1.005-1.030) Urine Protein Trace A (Negative) Urine Glucose (UA) Negative (Negative) mg/dL Urine Ketones 40 A (Negative) Urine Blood Negative (Negative) Urine Nitrite Negative (Negative) Urine Bilirubin Negative (Negative) Urine Urobilinogen 0.2 (0.2) mg/dL Ur Leukocyte Esterase Trace A (Negative) U Hyaline Cast (Auto) 3-5 A (0-2) /LPF Urine Microscopic RBC 0-2 (0-5) /HPF Urine Microscopic WBC 0-2 (0-5) /HPF Ur Epithelial Cells None Seen (None Seen) /HPF Urine Bacteria None Seen (None Seen) /HPF Urine Culture Reflexed NO (NO) 11/11/24 11/11/24 11/11/24 Range/Units 13:59 13:59 13:59 WBC 9.1 (3.98-10.04) x10^3/uL RBC 4.20 (3.93-5.22) x10^6/uL Hgb 12.6 (11.2-15.7) g/dL Hct 37.8 (34.1-44.9) % MCV 90.0 (79.4-94.8) fL MCH 30.0 (25.6-32.2) pg MCHC 33.3 (32.2-35.5) g/dL RDW 13.7 (11.7-14.4) % Plt Count 417 H (182-369) x10^3/uL MPV 8.7 L (9.4-12.3) fL Gran % 80.0 H (34.0-71.1) % Immature Gran % (Auto) 0.6 H (0.001-0.429) % Nucleat RBC Rel Count 0.0 (0.00-0.2) % Eos # (Auto) 0.06 (0.04-0.36) x10^3/uL Immature Gran # (Auto) 0.05 H (0.001-0.031) x10^3u/L Absolute Lymphs (auto) 1.13 L (1.18-3.74) x10^3/uL Absolute Monos (auto) 0.51 (0.24-0.86) x10^3/uL Absolute Nucleated RBC 0.00 (0.00-0.012) x10^3u/L Lymphocytes % 12.4 L (19.3-51.7) % Monocytes % 5.6 (4.7-12.5) % Eosinophils % 0.7 (0.7-5.8) % Basophils % 0.7 (0.1-1.2) % Absolute Granulocytes 7.27 H (1.56-6.13) x10^3/uL Basophils # 0.06 (0.01-0.08) x10^3/uL Sodium 140 (135-145) mmol/L Potassium 4.3 (3.5-5.1) mmol/L Chloride 108 H (98-107) mmol/L Carbon Dioxide 21 L (22-30) mmol/L Anion Gap 15.0 (5-15) MEQ/L BUN 17 (7-17) mg/dL Creatinine 0.92 (0.52-1.04) mg/dL Estimated GFR 67.8 ML/MIN Glucose 92 (74-106) mg/dL Lactic Acid (0.4-2.0) Calcium 9.4 (8.4-10.2) mg/dL Total Bilirubin 0.90 (0.2-1.3) mg/dL AST 119 H (14-36) U/L ALT 155 H (0-35) U/L Alkaline Phosphatase 117 (38-126) U/L Troponin I < 0.012 (0.000-0.033) ng/mL Serum Total Protein 6.3 (6.3-8.2) g/dL Albumin 4.0 (3.5-5.0) g/dL Lipase 48 (23-300) U/L Urine Color (Yellow) Urine Appearance (Clear) Urine pH (4.6-8.0) Ur Specific Wolcott (1.005-1.030) Urine Protein (Negative) Urine Glucose (UA) (Negative) mg/dL Urine Ketones (Negative) Urine Blood (Negative) Urine Nitrite (Negative) Urine Bilirubin (Negative) Urine Urobilinogen (0.2) mg/dL Ur Leukocyte Esterase (Negative) U Hyaline Cast (Auto) (0-2) /LPF Urine Microscopic RBC (0-5) /HPF Urine Microscopic WBC (0-5) /HPF Ur Epithelial Cells (None Seen) /HPF Urine Bacteria (None Seen) /HPF Urine Culture Reflexed (NO) - Progress Progress: improved Discussed with : Park Counseled pt/family regarding: lab results, diagnosis, need for follow-up, rad results - Progress Progress Note: Patient was turned over to me. Her symptoms have improved. They are basically just waiting on a CT with contrast. It came back and showed improvement. At this time I am going to discharge her to home. 11/11/24 20:16 (MARY WILSON) Abdominal Pain Diffuse abdominal pain for several weeks, intensifying last week, with sharp and dull characteristics radiating to the shoulder blades. History of pancreatitis and diverticulitis raises concern for recurrence. Inability to eat or drink without severe pain and dehydration, but no vomiting. Abdominal swelling and chest pain upon movement. Differential includes pancreatitis, diverticulitis, or other gastrointestinal issues. Suspects pancreatitis due to past experiences, but notes symptom differences. - Order laboratory tests - Obtain abdominal scan - Administer analgesics - Provide antiemetics Dehydration Inability to eat or drink due to abdominal pain and gastrointestinal distress, leading to dehydration. - Administer IV fluids CT showed thickening of jejeunum rec CT abd/pelvis with contrast. Labs unremarkable. (MUNDO BUSCH) Medical Desision Making - Diagnostic Testing Diagnostic test were ordered, analyzed, and reviewed by me: Yes Radiological Interpretation: Interpreted by me, Reviewed by me, Teleradiologist Report - Risk of complications The pt has a mod risk of morbidity or mortality based on: Need for prescription drug management - Departure Departure Disposition: Home Critical Care Time: No - Departure Clinical Impression: Generalized abdominal pain, Transaminitis Condition: Good Referrals: SJ JAMISON FNP [Primary Care Provider] - Follow up/PCP as directed Instructions: Severe Abdominal Pain, Adult (DC)
[2024-11-11 13:59] LABS: Absolute Neutrophil Ct (ANC) 7.27 x10^3/uL (1.56-6.13); BASOPHIL % 0.7 % (0.1-1.2); Basophil (Absolute #) 0.06 x10^3/uL (0.01-0.08); Eosinophil % 0.7 % (0.7-5.8); Eosinophil (Absolute #) 0.06 x10^3/uL (0.04-0.36); Hematocrit 37.8 % (34.1-44.9); Hemoglobin 12.6 g/dL (11.2-15.7); IMMATURE GRAN # 0.05 x10^3u/L (0.001-0.031); IMMATURE GRAN % 0.6 % (0.001-0.429); Lymphocyte (Absolute #) 1.13 x10^3/uL (1.18-3.74); Lymphocytes % 12.4 % (19.3-51.7); Mean Corpuscular Hgb Concent. 33.3 g/dL (32.2-35.5); Mean Platelet Volume 8.7 fL (9.4-12.3); Monocyte (Absolute #) 0.51 x10^3/uL (0.24-0.86); Monocytes % 5.6 % (4.7-12.5); Platelet Count 417 x10^3/uL (182-369); Red Cell Distribution Width 13.7 % (11.7-14.4); White Blood Count 9.1 x10^3/uL (3.98-10.04)
[2024-11-11] MEDS ORDERED: Sodium Chloride 0.9% 1000 ML 1,000 ML ONE (14:12)
[2024-11-11] MEDS ORDERED: Inapsine 5 MG/2 ML ONE (14:12)
[2024-11-11 14:15] LABS: BILIRUBIN,TOTAL 0.9 mg/dL (0.2-1.3); Calcium 9.4 mg/dL (8.4-10.2); Creatinine 1 0.92 mg/dL (0.52-1.04); EST GLOMERULAR FILTRATION RATE 67.8 ML/MIN; Potassium 4.3 mmol/L (3.5-5.1); Total Protein 6.3 g/dL (6.3-8.2)
[2024-11-11 14:15] LABS: Appearance Clear (Clear); Bacteria None Seen /HPF (None Seen); Bilirubin Negative (Negative); Blood Negative (Negative); Epithelial Cells None Seen /HPF (None Seen); Glucose, Urine Negative (Negative); Ketones 40 (Negative); Leukocyte Esterase Trace (Negative); Nitrite Negative (Negative); Ph 8.5 (4.6-8.0); Protein,Urine Dip Trace (Negative); RBC 0-2 /HPF (0-5); Specific Gravity 1.025 (1.005-1.030); Urobilinogen 0.2 mg/dL (0.2); WBC 0-2 /HPF (0-5)
[2024-11-11] MEDS: Sodium Chloride 0.9% 1000 ML 1,000 ML IV STA (14:15)
[2024-11-11] MEDS: Inapsine 5 MG/2 ML IV ONE (14:17)
--- NOTE | 2024-11-11 16:26 | XRAY ---
CLINICAL HISTORY: abd pain COMPARISON: 11/19/2022 TECHNIQUE: Non-contrast CT of the abdomen and pelvis was performed, with the following protocol: axial images, and reconstructed coronal and sagittal images. No intravenous contrast was administered. One of the following dose reduction techniques was utilized for this exam: Automated exposure control, adjustment of the mA and/or kV according to patient size, and use of iterative reconstruction. FINDINGS: Basal chest cuts shows densely calcified Bi-lobulated 16 x 12, and 6 x 8 mm nodular lesion at left lung base, likely of benign nature, no need for follow-up. Abdomen: Liver: Normal in size, shape, and density. No focal lesions, cysts, or masses were identified. Gallbladder and Biliary System: The gallbladder is removed Pancreas: Pancreatic head, body, and tail are visualized and appear normal in size and density. No pancreatic masses or calcifications were noted. Spleen: Normal in size, shape, and density. No splenic lesions or masses were identified. Kidneys and Adrenal Glands: Both kidneys are normal in size, shape, and position. Cortical thickness is within normal limits. No renal calculi or hydronephrosis. Adrenal glands are unremarkable. Appendix: The appendix is normal in size without yakov appendiceal fat stranding, and without an appendicolith. No evidence of appendiceal abscess or perforation. Pelvis: Urinary Bladder: Normal in contour and wall thickness. No intraluminal lesions. Uterus: Not seen Ovaries: Not well visualized but no gross abnormalities noted. Vagina: Normal in contour and wall thickness. Cervix: No evidence of mass or abnormal thickening. Peritoneal and Retroperitoneal Structures: No free fluid or abnormal fluid collections were identified within the abdomen or pelvis. No lymphadenopathy was noted. Bowel: Mildly dilated jejunal bowel segments, up to 32 mm diameter, with mild mural edema, close follow-up is advised. The previously seen acute diverticulitis has been resolved. Bones and Soft Tissues: Pelvic bones and soft tissues are unremarkable. No fractures or abnormal masses were identified. IMPRESSION: 1. Mildly dilated jejunal bowel segments, up to 32 mm diameter, with mild mural edema, MAy represent slow transit, however, follow-up by contrast enhanced study is advised. 2. Resolution of sigmoid diverticulitis. 3. Basal chest cuts show densely calcified Bi-lobulated 16 x 12, and 6 x 8 mm nodular lesion at left lung base, likely of benign nature, no need for follow-up. Electronically Signed by: Joe Katz MD. (11/11/2024 16:22:03 EST)
[2024-11-11 18:03] VITALS: O2SAT 100
--- NOTE | 2024-11-11 19:40 | XRAY ---
CLINICAL HISTORY: abd pain COMPARISON: Comparison is made with prior CT 11/11/2024 13:55:04 [employer] TECHNIQUE: CT of the abdomen and pelvis was performed with 80cc isovue 370 contrast, with the following protocol: axial images with, and reconstructed coronal and sagittal images. One of the following dose reduction techniques was utilized for this exam: Automated exposure control, adjustment of the mA and/or kV according to patient size, and use of iterative reconstruction. FINDINGS: Basal chest cuts shows densely calcified bi-lobulated 16 x 12 mm, and 6 x 8 mm nodular lesion at left lung base, likely of benign nature,. Abdomen: Liver: Normal in size, shape. Tiny 7 mm hypodense focal lesion is seen in the caudate lobe. Gallbladder and Biliary System: The gallbladder is removed. Pancreas: Pancreatic head, body, and tail are visualized and appear normal in size and density. No pancreatic masses or calcifications were noted. Spleen: Normal in size, shape, and density. No splenic lesions or masses were identified. few small calcific foci are noted. Kidneys and Adrenal Glands: Both kidneys are normal in size, shape, and position. Cortical thickness is within normal limits. No renal calculi or hydronephrosis. Adrenal glands are unremarkable. Appendix: The appendix is normal in size without yakov appendiceal fat stranding, and without an appendicolith. No evidence of appendiceal abscess or perforation. Pelvis: Urinary Bladder: Normal in contour and wall thickness. No intraluminal lesions. Uterus: Not seen Ovaries: Not well visualized but no gross abnormalities noted. Vagina: Normal in contour and wall thickness. Cervix: No evidence of mass or abnormal thickening. Peritoneal and Retroperitoneal Structures: No free fluid or abnormal fluid collections were identified within the abdomen or pelvis. No lymphadenopathy was noted. Bowel: The jejunal bowel is less dilated measuring 2.6 cm in diameter. No significant mural thickening or masses or obstruction. Bones and Soft Tissues: Lumbar spondylosis. Pelvic bones and soft tissues are unremarkable. No fractures or abnormal masses were identified. IMPRESSION: 1. Regression of the degree of jejunal bowel dilatation with no masses. No current evidence of pathological bowel dilatation or obstruction. 2. Tiny non-enhancing hypodense hepatic caudate lobe hypodense focal lesion likely cyst, suggest sonographic correlation. 3. Basal chest cuts show densely calcified bi-lobulated 16 x 12 mm, and 6 x 8 mm nodular lesions at left lung base, likely of benign nature, no need for follow-up. Electronically Signed by: Joe Katz MD. (11/11/2024 19:36:45 EST)
[2024-11-11 20:15] VITALS: BP 133/67; PULSE 84; RESP 27
== END 2024-11-11 20:20 | disposition home or self-care (01) ==
LOC: ED 12:42
DX: R10.84 Generalized abdominal pain (principal); R74.01 Elevation of levels of liver transaminase levels; Z79.85 Long-term (current) use of injectable non-insulin antidiabetic drugs; Z79.899 Other long term (current) drug therapy
CPT/HCPCS: 36415; 74176; 74177; 80053; 81001; 83605; 83690; 84484; 85025; 93005; 96361; 96374; 99284; 99285; J1790